=== PATIENT | female | born 1975 | race Caucasian/White ===

== ENCOUNTER 2020-01-26 09:53 | Outpatient (CLI) | payer OTHER, SELFPAY ==
[2020-01-26 10:32] LABS: Basophils Percent Auto 0.5 % (0.2-1.2); Eosinophils Absolute Auto 0.1 K/mm3 (0-0.3); Eosinophils Percent Auto 1.3 % (0-4.4); Hematocrit 37.3 % (37.0-47.0); Hemoglobin 12.1 g/dL (12.0-15.0); Immature Granulocyte Absolute 0.01 K/mm3 (0.00-0.031); Immature Granulocyte Percent A 0.2 % (0-0.5); Lymphocytes Absolute Auto 2.28 K/mm3 (0.9-3.2); Lymphocytes Percent Auto 41.5 % (18.3-44.2); Mean Corpuscular HGB Conc 32.4 g/dl (32-36); Mean Corpuscular Hemoglobin 28.3 pg (26-34); Mean Corpuscular Volume 87.4 fl (80-100); Monocytes Absolute Auto 0.3 K/mm3 (0.1-0.6); Monocytes Percent Auto 5.1 % (2.6-8.5); Neutrophils Absolute Auto 2.8 K/mm3 (1.3-6.7); Neutrophils Percent Auto 51.4 % (45.5-73.1); Platelet Count Result 268 k/mm3 (150-375); Red Blood Count 4.27 M/mm3 (4.2-5.4); White Blood Count 5.5 K/mm3 (4.5-10.0)
[2020-01-26 10:38] LABS: Add Urine Microscopic? YES; Appearance Urine Clear (Clear); Bilirubin Urine Negative (Negative); Blood Urine Negative (Negative); Color Urine Yellow (Yellow); Glucose Urine UA Negative (Negative); Ketones Urine Negative (Negative); Leukocyte Esterase Ur Trace LEU/UL (Negative); Mucus Urine Rare /lpf; Nitrate Urine Negative (Negative); Protein Urine Negative (Negative); Specific Grav Ur 1.016 (1.001-1.035); Squamous Epithelial Cell Urine Many /hpf (Few); Urobilinogen Urine Negative mg/dL (<2.0); WBC Urine 0-3 /hpf
[2020-01-26 10:45] LABS: Alanine Aminotransferase 15 U/L (4-35); Albumin Level 4.3 g/dL (3.5-5.1); Alkaline Phosphatase 54 U/L (38-126); Aspartate Amino Transferase 24 U/L (14-36); Bilirubin,Total 0.5 mg/dL (0.2-1.3); Blood Urea Nitrogen 16 mg/dL (7-17); Calcium 8.5 mg/dL (8.4-10.2); Carbon Dioxide 29 mmol/L (22-30); Chloride 101 mmol/L (98-107); Cholesterol 154 mg/dL (0-200); Estimated Glomerular Filt Rate > 60; Glucose 94 mg/dL (65-105); HDL Direct 43 mg/dL; Sodium 137 mmol/L (137-145); Triglycerides 72 mg/dL (<150)
[2020-01-26 10:56] LABS: LDL Cholesterol Direct 95 mg/dL
[2020-01-26 11:24] LABS: Free T4 Free Thyroxine 1.04 ng/mL (0.78-2.19); Vitamin D 25 Hydroxy 40.4 ng/mL
[2020-01-26 11:50] LABS: Folic Acid > 20.0 ng/mL (2.76->20)
[2020-01-29 00:41] LABS: Thyroid Peroxidase Antibodies 6 IU/mL (<9)
[2020-01-29 02:45] LABS: Calcitonin <2 pg/mL (<=5)
[2020-01-29 16:37] LABS: Iron 147 ug/dL (37-170)
[2020-01-29 16:46] LABS: Percent Iron Saturation 36 % (20-50)
[2020-01-29 20:46] LABS: Triiodothyronine T3 Free 2.4 pg/mL (2.3-4.2)
== END 2020-01-26 09:54 | disposition home or self-care (01) ==
PROVIDERS: Referring Provider Internal Medicine Endocrinology, Diabetes & Metabolism; Visit Provider Emergency Medicine
DX: D64.9 Anemia, unspecified (principal); E03.9 Hypothyroidism, unspecified; N28.9 Disorder of kidney and ureter, unspecified; R06.02 Shortness of breath; R07.9 Chest pain, unspecified; R53.83 Other fatigue; Z13.220 Encounter for screening for lipoid disorders; E55.9 Vitamin D deficiency, unspecified; E04.1 Nontoxic single thyroid nodule
CPT/HCPCS: 36415; 80053; 80061; 81001; 82306; 82308; 82607; 82746; 83540; 83550; 84439; 84443; 84481; 85025; 85027; 86376

== ENCOUNTER 2020-05-07 16:14 | Outpatient (CLI) | payer OTHER, SELFPAY ==
--- NOTE | ~2020-05-07 | US_ITS ---
EXAMINATION: US thyroid EXAM DATE: 05/07/2020 17:19 INDICATION: Thyroid nodule. TECHNIQUE: Multiple grayscale and Doppler images of the thyroid were obtained (by a technologist who performed the scan) and subsequently reviewed. Individual nodules and recommendations may be reporte d in accordance with TI-RADS system as designated by the 2017 ACR White Paper TI-RADS committee. Comp arison is made to prior examination from 08/11/2019, 08/02/2017. FINDINGS: The right thyroid lobe measures 6.1 x 1.2 x 2.2 cm, the left measuring 4.1 x 1.1 x 1.1 cm. Mildly het erogeneous thyroid echogenicity with large right thyroid lobe measuring 3.0 x 2.7 x 1.4 centimeters, predominantly solid (2 points), isoechoic (1 point), wider than tall, smooth margin, without echogeni c foci, category TR3 for this nodule. Dimensions provided in 2017 at 2.4 x 1.4 cm, and 2019 at 2.9 x 2.7 x 1.7 cm. This nodule was also previously biopsied in August, correlate with histology. IMPRESSION: 1. Goiter. 2. Right thyroid lobe nodule, unchanged compared to 2019. Reviewed, dictated and finalized at location B.
--- NOTE | ~2020-05-07 | US_ITS ---
EXAMINATION: US renal BI DATE: 05/07/2020 17:20 INDICATION: Hematuria TECHNIQUE: Multiple grayscale and Doppler ultrasound images of the kidneys were obtained. COMPARISON: None. FINDINGS: The right kidney measures 11.5 x 5.1 x 3.7 cm. The left kidney measures 12.8 x 4.6 x 3.8 cm . The kidneys demonstrate normal parenchymal echogenicity. There is no hydronephrosis. The bladder is normal. IMPRESSION: 1. Normal kidneys without hydronephrosis. Reviewed, dictated and finalized at location A.
== END 2020-05-07 16:15 | disposition home or self-care (01) ==
PROVIDERS: Visit Provider Internal Medicine Endocrinology, Diabetes & Metabolism
DX: R31.9 Hematuria, unspecified (principal); E04.9 Nontoxic goiter, unspecified
CPT/HCPCS: 76536; 76775

== ENCOUNTER 2021-02-25 08:16 | Outpatient (CLI) | payer OTHER, SELFPAY ==
--- NOTE | ~2021-02-25 | MM_ITS ---
EXAMINATION: MM screening [facility] BI w kosta HISTORY: Screening mammogram TECHNIQUE: Craniocaudal and mediolateral oblique 3-D tomosynthesis images were obtained and synthetic 2-D images were generated. CAD analysis was submitted and interpreted. COMPARISON: 08/11/2019, 08/02/2017 BREAST PARENCHYMAL COMPOSITION: The breasts are heterogeneously dense, which may obscure small masses . FINDINGS: There is no evidence of suspicious mass, calcification, or architectural distortion to sugg est malignancy in either breast. There has been no suspicious interval change. IMPRESSION: 1. No mammographic evidence of malignancy. 2. Recommend routine screening mammography in one year. BI-RADS Category 1: Negative Reviewed, dictated and finalized at location A.
[2021-02-25 09:51] LABS: Alanine Aminotransferase 13 U/L (4-35); Albumin Level 4.2 g/dL (3.5-5.1); Alkaline Phosphatase 56 U/L (38-126); Anion Gap 3 mmol/L (8-16); Aspartate Amino Transferase 24 U/L (14-36); Bilirubin,Total 0.4 mg/dL (0.2-1.3); Blood Urea Nitrogen 16 mg/dL (7-17); Calcium 8.8 mg/dL (8.4-10.2); Carbon Dioxide 32 mmol/L (22-30); Chloride 104 mmol/L (98-107); Estimated Glomerular Filt Rate > 60; Glucose 104 mg/dL (65-105); Sodium 139 mmol/L (137-145)
[2021-02-25 11:06] LABS: Folic Acid 16.1 ng/mL (2.76->20)
[2021-03-01 06:11] LABS: Thyroid Peroxidase Antibodies 6 IU/mL (<9)
[2021-03-01 07:59] LABS: Triiodothyronine T3 Free 2.8 pg/mL (2.3-4.2)
== END 2021-02-25 08:17 | disposition home or self-care (01) ==
PROVIDERS: Referring Provider Internal Medicine Endocrinology, Diabetes & Metabolism; Visit Provider Emergency Medicine
DX: Z12.31 Encounter for screening mammogram for malignant neoplasm of breast (principal); E03.9 Hypothyroidism, unspecified
CPT/HCPCS: 36415; 77063; 77067; 80053; 82607; 82746; 84439; 84443; 84481; 86376

== ENCOUNTER 2021-05-13 10:15 | Emergency (ER) | payer OTHER, SELFPAY ==
[2021-05-13 10:35] VITALS: BP 118/89; PULSE 105; RESP 16; TEMP 36.4; O2SAT 100
[2021-05-13 10:38] VITALS: BP 118/89; PULSE 105; RESP 16; TEMP 36.4; O2SAT 100
--- NOTE | 2021-05-13 11:10 | ED.BACK ---
HPI - Back Pain/Injury General Chief Complaint: Back Pain/Injury Stated Complaint: Lt leg pain Time Seen by Provider: 05/13/21 11:03 Source: patient and RN notes reviewed Mode of arrival: ambulatory Limitations: no limitations History of Present Illness HPI Narrative: Patient presents today complaining of pain to her left buttock and left upper leg since yesterday. Pain started as she was getting out of bed. History of sciatica and piriformis syndrome. Denies numbness or tingling in the genitals or legs. Denies any loss of bowel or bladder control. She currently rates her pain 5/10, which increases with standing, walking, movement. She has been taking ibuprofen without relief. MD elicited complaint: back pain Related Data Home Medications Medication Instructions Recorded Confirmed alprazolam 0.5 mg PO TID PRN 11/23/19 05/13/21 amitriptyline 75 mg PO HS 11/23/19 05/13/21 levothyroxine 88 mcg PO DAILY 11/23/19 05/13/21 Allergies Allergy/AdvReac Type Severity Reaction Status Date / Time [place] Grass Allergy Unknown Unknown Uncoded 11/23/19 14:45 Cockroach Allergy Unknown Unknown Uncoded 11/23/19 14:45 Dust Allergy Unknown Unknown Uncoded 11/23/19 14:45 Review of Systems Review of Systems: Narrative: CONSTITUTIONAL: Denies body aches, fever, chills, or sweats. EYES: Denies visual changes, redness, or discharge. ENT: Denies rhinorrhea, congestion, sore throat, or otalgia. CARDIOVASCULAR: Denies chest pain, palpitations, or edema. RESPIRATORY: Denies cough or dyspnea. GASTROINTESTINAL: Denies abdominal pain, nausea, vomiting, or diarrhea. GENITOURINARY: Denies dysuria or hematuria. SKIN: Denies rash, itching, or wounds. MUSCULOSKELETAL: Denies joint pain, or myalgia. + Pain left buttock NEUROLOGIC: Denies headache, numbness, tingling, or weakness. PSYCH: Denies depression or anxiety. [facility] Past Medical History Medical History (Updated 05/13/21 @ 11:15 by Liana Patel, [facility], ) Anxiety Asthma Diabetes Hiatal hernia HTN (hypertension) Hypothyroid IBS (irritable bowel syndrome) Surgical History Surgical History History of bladder surgery History of hysterectomy History of tonsillectomy Social History Social History Smoking status: Never smoker Alcohol intake: never Gender identity (if verbalized by the patient): Female Comments At time of signature, I have reviewed and agree with nursing past medical, surgical, social and family history unless otherwise noted. Please see nursing chart for further information. There is no relevant family history pertinent to the presenting complaint Exam Narrative: Exam Narrative: GENERAL: Well-appearing, well-nourished, and in no acute distress. HEAD: Normocephalic, atraumatic. EYES: EOMI. No redness or drainage. Conjunctivae normal. ENT: Mucous membranes pink and moist. NECK: Normal AROM. CHEST: No respiratory distress. MUSCULOSKELETAL: No bony tenderness of the thoracic or lumbar spine. Left lower lumbar paraspinal muscle tenderness extending to the left SI joint. Distal sensation intact. Saddle sensation intact. Capillary refill normal. Posterior tibial pulses normal. Foot push and pulls equal and strong. EXTREMITIES: Normal range of motion. No edema. SKIN: Warm, dry, no rash. Capillary refill normal. Normal skin turgor. NEURO: No focal deficits. Alert and oriented x3. Gait steady. PSYCH: Normal affect. No signs of depression or anxiety. Course Vital Signs Vital signs: Vital Signs Temperature 97.6 F 05/13/21 10:35 Pulse Rate 105 H 05/13/21 10:35 Respiratory Rate 16 05/13/21 10:35 Blood Pressure 118/89 05/13/21 10:35 Pulse Oximetry 100 05/13/21 10:35 Temperature 97.6 F 05/13/21 10:38 Pulse Rate 105 H 05/13/21 10:38 Respiratory Rate 16 05/13/21 10:38 Blood Pressure 118/89 05/13/21
== END 2021-05-13 11:21 | disposition home or self-care (01) ==
PROVIDERS: Emergency Provider Nurse Practitioner; PCP Emergency Medicine
DX: M54.32 Sciatica, left side (principal); J45.909 Unspecified asthma, uncomplicated; E11.9 Type 2 diabetes mellitus without complications; I10 Essential (primary) hypertension; E03.9 Hypothyroidism, unspecified; F41.9 Anxiety disorder, unspecified
CPT/HCPCS: 99213; G0463

== ENCOUNTER 2021-06-06 07:59 | Outpatient (CLI) | payer OTHER, SELFPAY ==
--- NOTE | ~2021-06-06 | XR_ITS ---
SMALL BOWEL SERIES ONLY INDICATION: Obstipation. Small bowel obstruction. TECHNIQUE: Serial plain films and fluoroscopic spot films are performed following oral demonstration of thin barium. COMPARISON: None FINDINGS: Barium was followed sequentially through the small bowel. The mucosal pattern is unremarka ble. No evidence for stricture, polyp, diverticula or obstruction of flow of contrast. Transit time is normal. IMPRESSION: 1: Unremarkable small bowel series. Reviewed, dictated and finalized at location A.
== END 2021-06-06 08:00 | disposition home or self-care (01) ==
PROVIDERS: PCP Emergency Medicine; Visit Provider Internal Medicine Gastroenterology
DX: R10.84 Generalized abdominal pain (principal); K59.00 Constipation, unspecified
CPT/HCPCS: 74250

== ENCOUNTER 2021-07-07 08:24 | Outpatient (CLI) | payer OTHER, SELFPAY ==
--- NOTE | ~2021-07-07 | XR_ITS ---
EXAMINATION: XR_ENEMABAC_CR DATE: 07/07/2021 10:02 INDICATION: Incomplete colonoscopy TECHNIQUE: A leadite man radiograph was obtained. A catheter was inserted into the patient's rectum. Contra st was infused by gravity. Gas was infused by hand pump. Fluoroscopic spot images and conventional ra diographs were obtained. Fluoroscopy exposure time was 5.7 minutes. The DAP for this procedure was 20 5.53 Gycm2. 32 total images were obtained. COMPARISON: None. FINDINGS: There is no stricture of the colon. Diverticula of the sigmoid colon are noted. No filling defects are evident. IMPRESSION: 1. No colonic stricture or mass identified. Reviewed, dictated and finalized at location A.
== END 2021-07-07 08:25 | disposition home or self-care (01) ==
LOC: ANHIMG 08:28
PROVIDERS: PCP Emergency Medicine; Visit Provider Internal Medicine Gastroenterology
DX: Z53.9 Procedure and treatment not carried out, unspecified reason (principal)
CPT/HCPCS: 74280

== ENCOUNTER 2022-03-08 11:38 | Emergency (ER) | payer OTHER, SELFPAY ==
--- NOTE | 2022-03-08 11:41 | ED.GENADULT ---
HPI - General Adult General Chief complaint: Skin/Abscess/Foreign Body Stated complaint: rash,facial swelling Time Seen by Provider: 03/08/22 11:41 Source: patient Mode of arrival: ambulatory Limitations: no limitations History of Present Illness HPI narrative: 46-year-old female patient presents to the [facility] with complaints of a rash to the face with itching and facial swelling. Patient states that this past started having a rash and itching to the knees that quickly spread throughout the body. Patient states she was seen at an urgent care in [facility] on Wednesday and was given a steroid shot for the rash as well as prescribed a prednisone Dosepak. Patient states that she has been taking 60 mg a day of the prednisone along with Pepcid twice a day, Benadryl and Xyzal once a day. Patient states she woke up this morning and has swelling around the eyes, lips. Denies any chest pain, shortness of breath or feeling like her throat is closing up. Related Data Home Medications Medication Instructions Recorded Confirmed alprazolam 0.5 mg PO TID PRN 11/23/19 03/08/22 amitriptyline 75 mg PO HS 11/23/19 03/08/22 levothyroxine 88 mcg PO DAILY 11/23/19 03/08/22 Allergies Allergy/AdvReac Type Severity Reaction Status Date / Time [place] Grass Allergy Unknown Unknown Uncoded 03/08/22 11:53 Cockroach Allergy Unknown Unknown Uncoded 03/08/22 11:53 Dust Allergy Unknown Unknown Uncoded 03/08/22 11:53 Review of Systems Review of Systems: CONSTITUTIONAL: Denies fever, chills, or sweats. EYES: Denies visual changes, redness, or discharge. ENT: Denies rhinorrhea, congestion, sore throat, or otalgia. CARDIOVASCULAR: Denies chest pain, palpitations, or edema. RESPIRATORY: Denies cough or dyspnea. GASTROINTESTINAL: Denies abdominal pain, nausea, vomiting, or diarrhea. GENITOURINARY: Denies dysuria or hematuria. SKIN: Positive rash and itching. MUSCULOSKELETAL: Denies back pain, joint pain, or myalgia. NEUROLOGIC: Denies headache, numbness, or weakness. PSYCHIATRIC: Denies anxiety or depression. [facility] Past Medical History Medical History (Updated 03/08/22 @ 12:04 by GARRY Celestin) Anxiety Asthma Diabetes Hiatal hernia HTN (hypertension) Hypothyroid IBS (irritable bowel syndrome) Surgical History Surgical History History of bladder surgery History of hysterectomy History of tonsillectomy Social History Social History Smoking status: Never smoker Alcohol intake: never Gender identity (if verbalized by the patient): Female Comments At the time of my signature I agree with nursing past medical history, surgical, social, and family history. There is no relevant family history pertinent to the presenting complaint. Exam Narrative: GENERAL: Well-appearing, well-nourished, and in no acute distress. HEAD: Normocephalic, atraumatic. EYES: PERRLA and EOMI. slight swelling noted under the right eyelid. Slight lip swelling noted. ENT: Nares clear, no rhinorrhea or epistaxis. Mucous membranes moist. Posterior pharynx with no erythema, tonsil enlargement or swelling noted. NECK: Supple. No lymphadenopathy CHEST: Clear to auscultation. No respiratory distress. Patient able talk in clear complete sentences. HEART: Regular rate and rhythm. No murmur heard. Normal peripheral pulses. ABDOMEN: Soft, nontender, nondistended, normal active bowel sounds. EXTREMITIES: Normal range of motion. No edema. SKIN: Warm, dry, no rash. NEURO: No focal deficits. Alert and oriented x3. Course Course Level of Care: Express Care Visit Vital Signs Vital signs: Vital Signs Temperature 36.8 C 03/08/22 11:47 Pulse Rate 108 H 03/08/22 11:47 Respiratory Rate 18 03/08/22 11:47 Blood Pressure 143/82 H 03/08/22 11:47 Pulse Oximetry 98 03/08/22 11:47 Temperature 36.8 C 03/08/22 11:47 Pulse Rate 108 H
[2022-03-08 11:47] VITALS: BP 143/82; PULSE 108; RESP 18; TEMP 36.8; O2SAT 98
== END 2022-03-08 12:10 | disposition home or self-care (01) ==
PROVIDERS: Emergency Provider Nurse Practitioner Family; PCP Emergency Medicine
DX: L50.9 Urticaria, unspecified (principal); T78.40XA Allergy, unspecified, initial encounter; R21 Rash and other nonspecific skin eruption; F41.9 Anxiety disorder, unspecified; E11.9 Type 2 diabetes mellitus without complications; I10 Essential (primary) hypertension; E03.9 Hypothyroidism, unspecified
CPT/HCPCS: 99213; G0463

== ENCOUNTER 2022-05-06 07:39 | Outpatient (CLI) | payer OTHER, SELFPAY ==
--- NOTE | ~2022-05-06 | US_ITS ---
EXAMINATION: US thyroid DATE: 05/06/2022 08:04 INDICATION: Nontoxic goiter. Thyroid nodule. Prior biopsy in 2019 benign follicular nodule with featu res of colloid cyst. Prior biopsy in 2017 consistent with benign follicular nodule. TECHNIQUE: Multiple ultrasound images of the thyroid were obtained. COMPARISON: 05/07/2020 and 08/11/2019. FINDINGS: The right thyroid lobe measures 3.1 x 1.2 x 1.1 cm. The left thyroid lobe measures 4.2 x 0.9 x 1.0 c m. There is normal echotexture and echogenicity throughout the thyroid gland. 3.3 x 2.7 x 2.1 cm mix ed cystic and solid, isoechoic, wider than tall, smoothly marginated right isthmus nodule, without ec hogenic foci (TR 2), previously measured 3.0 x 2.7 x 1.4. Spongiform areas comprise less than 50% of the nodule. Possible colloid appearing echogenicities in the inferior portion of the nodule. Normal v ascular flow is present. IMPRESSION: 1.. Twice biopsied 3.3 cm right isthmus nodule, with increased interval cystic change that downgrades categorization to TR2. No FNA or follow-up recommended at this time. Reviewed, dictated and finalized at location K. IMPRESSION: 1.. Twice biopsied 3.3 cm right isthmus nodule, with increased interval cystic change that downgrades categorization to TR2. No FNA or follow-up recommended a t this time.
== END 2022-05-06 07:40 | disposition home or self-care (01) ==
PROVIDERS: PCP Emergency Medicine; Visit Provider Nurse Practitioner
DX: E04.9 Nontoxic goiter, unspecified (principal)
CPT/HCPCS: 76536

== ENCOUNTER 2022-11-04 12:49 | Outpatient (CLI) | payer OTHER, SELFPAY ==
--- NOTE | ~2022-11-04 | CT_ITS ---
EXAMINATION: CT abdomen pelvis wo/w con DATE: 11/04/2022 13:38 INDICATION: Abdominal pain and hematuria TECHNIQUE: Computed tomography (CT) of the abdomen and pelvis was performed without intravenous contr ast. CT of the abdomen and pelvis was then performed with a total of 130 mL Omnipaque 350 intravenous contrast using a double-bolus technique for simultaneous opacification of the renal parenchyma and r enal collecting system. The dose-length product (DLP) was 1947.00 mGy-cm. Automated exposure control and iterative reconstruction technique were employed. COMPARISON: None FINDINGS: Surgical changes of the stomach are likely related to weight loss surgery. The visualized l evan bases are clear. The heart size is normal. There is a trace pericardial effusion. The liver, sple en, pancreas, gallbladder, and adrenal glands are normal. There is a 1 mm nonobstructing stone of the left kidney. The right kidney is unremarkable. There is a 6 mm focal area of nodular wall thickening of the anterior bladder wall. No hydronephrosis or hydroureter. Much of the left ureter does not opa cify with contrast however, no obstructing lesion is seen. No pathologically enlarged abdominal or pe lvic lymph nodes are identified. There is no free intraperitoneal gas or evidence of bowel obstructio n. A moderate volume of colonic stool is present. Formed stool in the nondistended terminal ileum is consistent with slow transit. The appendix is normal. IMPRESSION: 1. Focal area of wall thickening in the anterior bladder wall. Small urothelial lesion is a considera tion. Recommend urologic evaluation. 2. Punctate nonobstructing left nephrolithiasis. Reviewed, dictated and finalized at location B. [employer] IMPRESSION: 1. Focal area of wall thickening in the anterior bladder wall. Small urothelial lesion is a consideration. Recommend urologic evaluation. 2. Punctate nonobstructing left nephrolithiasis.
== END 2022-11-04 12:50 | disposition home or self-care (01) ==
PROVIDERS: PCP Emergency Medicine; Visit Provider Emergency Medicine
DX: M54.50 Low back pain, unspecified (principal); R31.9 Hematuria, unspecified; R10.84 Generalized abdominal pain; N20.0 Calculus of kidney
CPT/HCPCS: 74178; Q9967

== ENCOUNTER 2023-03-12 03:41 | Day surgery (SDC) | payer OTHER, SELFPAY ==
[2023-03-04 11:57] VITALS: BMI 31.6
--- NOTE | 2023-03-04 12:03 | PC.NURSE ---
Report to the Outpatient Waiting Room, entrance under the green pavilion located off [facility], at time 0730 on date 03/12/23. Planned Procedure Time: 0930. Time changes happen often and if your time is changed the preop area will call you the afternoon before. - You and your visitor will be asked to self-screen and do not enter if you have any COVID symptoms. - A mask is optional within the hospital at this time. Patients may have clear liquids (water, carbonated beverages, clear teas, apple juice) until 3 hours prior to surgery with a maximum of 20 ounces. - No food from midnight until time of surgery Take the following medications with a SIP of water the morning of surgery: ALPRAZOLAM IF NEEDED, SYNTHROID DO NOT STOP ANY OF YOUR OTHER PRESCRIPTION MEDICATIONS PRIOR TO SURGERY EXCEPT THE FOLLOWING Medications to discontinue per physician: VITAMINS/SUPPLEMENTS Date to take last dose: 03/08/23 Please no make-up, nail amharic, hairspray, perfume, deodorant, or body powder the day of surgery. No jewelry (including any body piercings) or valuables the day of surgery, leave them at home. Please take a shower or bath the night before, or the morning of, surgery with an antibacterial soap. Wear comfortable, loose fitting clothing. - Jewelry must be removed prior to entering the operating room. Rings and piercings that are not removed may be cut off. - The hospital will not accept responsibility for valuables. - Please leave all valuables, including medications, at home the day of surgery. If you are going home after surgery, a licensed truck driver heavy must drive you home. - NO public transportation without another adult if you receive anesthesia. - We recommend that an adult stay with you for 24 hours following discharge. - We also recommend that you do not drive, make important decision, drink alcoholic beverages, or take any drugs that were not prescribed by your health care provider for at least 24 hours after your discharge time. Follow any additional instructions given to you from your surgeon. If you or anyone in your household have experienced Covid symptoms in the past week, please notify your surgeon or the nurse liaison at the phone number below for possible testing. Telephone instructions given to PT - JUNIOR WHITTINGTON and asked if any additional questions and then verbalized understanding. Patient advised to call surgeon office or pre surgery nurse liaison [phone] if any additional questions.
--- NOTE | 2023-03-09 12:31 | P.HP_ITS ---
H&P: HPI History of Present Illness Date/Time: 03/09/23 12:31 Chief Complaint: Lesions vagina Narrative: Is a 47-year-old female status post hysterectomy cystocele and rectus seal with overgrowth of the lesions in the vagina. She has had bleeding and chronic discharge. Attempted to treat these in the office but then offered her cauterization with laser as it did not completely improved. Risks and benefits reviewed [facility] Past Medical History Medical History (Updated 03/09/23 @ 12:34 by Baron Dominguez MD) Anxiety Asthma Diabetes Hiatal hernia HTN (hypertension) Hypothyroid IBS (irritable bowel syndrome) Surgical History Surgical History History of bladder surgery History of hysterectomy History of tonsillectomy Social History Social History Smoking status: Never smoker Alcohol intake: current Alcohol use details: 2/MONTH Substance use: never Substance use type: does not use Living arrangements: with family Gender identity (if verbalized by the patient): Female Spiritual care concerns: No Meds Home Medications and Allergies Home Medications Medication Instructions Recorded Confirmed Type alprazolam 0.5 mg tablet 0.5 mg PO TID PRN Anxiety 11/23/19 03/04/23 History amitriptyline 75 mg tablet 75 mg PO HS 11/23/19 03/04/23 History epinephrine 0.3 mg/0.3 mL 0.3 ml subcut ONCE #2 ea 03/08/22 03/04/23 Rx injection, auto-injector cholecalciferol (vitamin D3) 125 125 mcg PO DAILY 03/04/23 03/04/23 History mcg (5,000 unit) tablet (Vitamin D3) levothyroxine 112 mcg tablet 112 mcg PO DAILY 03/04/23 03/04/23 History (Synthroid) melatonin 10 mg tablet 10 mg PO HS PRN Sleep 03/04/23 03/04/23 History multivitamin 1 tablet PO DAILY 03/04/23 03/04/23 History omega 5-kvu-ffp-fish oil 1,000 mg 1 cap PO DAILY 03/04/23 03/04/23 History (120 mg-180 mg) capsule (Fish Oil) Allergies Allergy/AdvReac Type Severity Reaction Status Date / Time [place] Grass Allergy Unknown Unknown Uncoded 03/04/23 11:54 Cockroach Allergy Unknown Unknown Uncoded 03/04/23 11:54 Dust Allergy Unknown Unknown Uncoded 03/04/23 11:54 Exam Const: General: cooperative, healthy appearing and comfortable Nutritional Appearance: average body habitus Orientation/consciousness: oriented to person, oriented to place and oriented to time HENMT: Head: normal to inspection Chest: Chest palpation & inspection: normal inspection of the chest Resp: Effort & Inspection: normal respiratory effort Cardio: Rate: regular rate Rhythm: regular rhythm Heart sounds: S1 normal heart sound present and S2 normal heart sound present GI: Inspection: normal to inspection Auscultation: normal bowel sounds : External Female Exam: normal external appearance Speculum Exam - Vag gino: normal appearance of the vagina Speculum Exam - Cervix: Cervix absent (Lesion seen on vaginal cuff) Bimanual Exam- Adnexa, other: normal adnexae Assessment and Plan Assessment and plan (1) Vaginal lesion: Code(s): N89.8 - Other specified noninflammatory disorders of vagina Status: Acute Plan CO2 laser of vaginal lesions
--- NOTE | 2023-03-11 13:46 | P.PNAN_ITS ---
Anes - Initial Pre Proc Eval Procedure: Operation Date: 03/12/23 09:30 Proposed Procedures p CO2 Laser of Vaginal Lesions - Baron Dominguez MD Date/Time: 03/11/23 13:46 Surgeon: Baron Dominguez MD Pre Op Diagnosis: Vaginal Lesions Patient Data Age: 47 Gender: F Height: 1.65 m Weight: 86.2 kg Allergies Allergy/AdvReac Type Severity Reaction Status Date / Time [place] Grass Allergy Unknown Unknown Uncoded 03/12/23 07:11 Cockroach Allergy Unknown Unknown Uncoded 03/12/23 07:11 Dust Allergy Unknown Unknown Uncoded 03/12/23 07:11 Home Medications Medication Instructions Recorded Confirmed Type alprazolam 0.5 mg tablet 0.5 mg PO TID PRN Anxiety 11/23/19 03/12/23 History amitriptyline 75 mg tablet 75 mg PO HS 11/23/19 03/12/23 History epinephrine 0.3 mg/0.3 mL 0.3 ml subcut ONCE #2 ea 03/08/22 03/12/23 Rx injection, auto-injector cholecalciferol (vitamin D3) 125 125 mcg PO DAILY 03/04/23 03/12/23 History mcg (5,000 unit) tablet (Vitamin D3) levothyroxine 112 mcg tablet 112 mcg PO DAILY 03/04/23 03/12/23 History (Synthroid) melatonin 10 mg tablet 10 mg PO HS PRN Sleep 03/04/23 03/12/23 History multivitamin 1 tablet PO DAILY 03/04/23 03/12/23 History omega 7-fpk-nlz-fish oil 1,000 mg 1 cap PO DAILY 03/04/23 03/12/23 History (120 mg-180 mg) capsule (Fish Oil) hydrocodone 5 mg-acetaminophen 325 1 tablet PO Q4H PRN pain #20 tabs 03/12/23 Rx mg tablet Patient hx anesthesia problems: none Family hx anesthesia problems: none Results Review: All pre-operative results and documents have been reviewed as part of the pre- operative evaluation. [facility] Past Medical History Medical History (Updated 03/11/23 @ 13:52 by Jose Pacheco MD) Anxiety Asthma Diabetes Hiatal hernia HTN (hypertension) Hypothyroid IBS (irritable bowel syndrome) Obesity Surgical History Surgical History History of bladder surgery History of hysterectomy History of tonsillectomy Social History Social History Smoking status: Never smoker Alcohol intake: current Alcohol use details: 2/MONTH Substance use: never Substance use type: does not use Living arrangements: with family Gender identity (if verbalized by the patient): Female Spiritual care concerns: No Anes - Eval Final PreProcedure Day of Procedure 03/11/23 13:46 Patient weight: obese Heart: regular rate and rhythm Lungs: clear to auscultation and normal air movement Airway: Mallampati scale class II Neurological: alert and oriented Last oral intake: >/= 8 hours ASA classification: III Emergent: no Anesthetic plan: proceed Anesthesia type and monitoring: general GIVS and LMA Results Review: All pre-operative results and documents have been reviewed as part of the pre- operative evaluation. Informed Consent: The patient's anesthetic plan and its attendant risks and benefits were discussed with the patient/family/POA. Questions were solicited and answers provided to the satisfaction of the patient/family/POA.
--- NOTE | 2023-03-12 06:02 | WPDHPUPDATE1 ---
History and Physical Update Update Date/Time: 03/12/23 06:02 History and Physical has been reviewed, including an updated exam of the patient. There are NO changes in the patient's condition. Risks, benefits, and alternatives have been discussed and questions answered. Patient agrees to proceed with procedure.
[2023-03-12 06:49] VITALS: BP 122/82; PULSE 84; RESP 18; TEMP 36.4; O2SAT 100
[2023-03-12] MEDS: LACTATED RINGERS 1,000 ML 30 ML IV CONT (07:18)
--- NOTE | 2023-03-12 09:22 | W.PM.PROC2 ---
Procedure Note - Detailed Date of Procedure 03/12/23 Pre-op Diagnosis Vaginal Lesions Post-op Diagnosis Same Procedure Performed CO2 laser of vaginal lesions Surgeon Baron Dominguez MD Anesthesia General Indications this is a 47-year-old female status post hysterectomy with overgrowth the epithelial in the vagina Findings status post hysterectomy with vaginal epithelialization Description of Procedure patient is prepped draped normal sterile fashion placed in the dorsal lithotomy position. Under excellent LMA anesthesia the coated speculum was placed in the vagina the areas of overgrowth were visualized and using the laser at 10 and these were used to destroy and completion. Blood loss was estimated 1cc. All sponge, needle, instrument counts were correct. There were no immediate complications Estimated Blood Loss 1 Drains No Packing No Pathology None sent Complications No immediate complications Condition Stable Disposition PACU
[2023-03-12 09:24] VITALS: BP 126/87; PULSE 75; RESP 10; TEMP 36.4; O2SAT 100
[2023-03-12 09:35] VITALS: BP 128/90; PULSE 70; RESP 16; O2SAT 100
[2023-03-12 09:50] VITALS: BP 130/86; PULSE 67; RESP 13; O2SAT 100
[2023-03-12 09:54] VITALS: BP 134/81; PULSE 78; RESP 20
[2023-03-12] MEDS: oxyCODONE HCL (*CRX) 5 MG TAB IR PO (10:04)
[2023-03-12 10:20] VITALS: BP 120/70; PULSE 70; RESP 20
== END 2023-03-12 10:25 | disposition home or self-care (01) ==
PROVIDERS: PCP Emergency Medicine; Visit Provider Obstetrics & Gynecology
PROC: (CPT 56501; principal; 2023-03-12 09:30)
DX: N89.8 Other specified noninflammatory disorders of vagina (principal); I10 Essential (primary) hypertension; E11.9 Type 2 diabetes mellitus without complications; E03.9 Hypothyroidism, unspecified; F41.9 Anxiety disorder, unspecified; E66.9 Obesity, unspecified; Z68.32 Body mass index [BMI] 32.0-32.9, adult
CPT/HCPCS: 56501; A9270; J1100; J2250; J2405; J2704; J7120

== ENCOUNTER 2023-04-01 07:59 | Outpatient (CLI) | payer OTHER, SELFPAY ==
--- NOTE | ~2023-04-01 | US_ITS ---
US thyroid INDICATION: Mona's thyroiditis TECHNIQUE: Real-time sonographic images of the thyroid gland were obtained. COMPARISON: Ultrasound dated 05/06/2022 FINDINGS: The right thyroid lobe measures 3.5 x 1.4 x 1.1 cm. The left thyroid lobe measures 3.7 x 1 .2 x 1.2 cm. There is normal echotexture and echogenicity throughout the thyroid gland. There is a co mplex partially cystic mass of the right lobe measuring 3.4 x 2.9 x 2 cm with increasing cystic compo nent. This is been biopsied proven benign no discrete masses in the left lobe. There is normal vascul arity. Twice previously. Normal vascular flow is present. IMPRESSION: 1. Slightly increased size of mixed solid and cystic, isoechoic, wider than tall, smoothly marginate d right thyroid nodule at the isthmus, TR 2. Previously biopsy-proven benign twice. No FNA or follow- up recommended at this time. Reviewed, dictated and finalized at location D. IMPRESSION: 1. Slightly increased size of mixed solid and cystic, isoechoic, wider than ta ll, smoothly marginated right thyroid nodule at the isthmus, TR 2. Previously b iopsy-proven benign twice. No FNA or follow-up recommended at this time.
== END 2023-04-01 08:00 | disposition home or self-care (01) ==
LOC: ANHIMG 08:01
PROVIDERS: PCP Emergency Medicine; Visit Provider Emergency Medicine
DX: E06.3 Autoimmune thyroiditis (principal)
CPT/HCPCS: 76536

== ENCOUNTER 2023-04-28 08:06 | Outpatient (CLI) | payer OTHER, SELFPAY ==
--- NOTE | ~2023-04-28 | CT_ITS ---
EXAMINATION: CT abdomen pelvis w con DATE: 04/28/2023 08:38 INDICATION: Abdomen pain. TECHNIQUE: Computed tomography (CT) of the abdomen and pelvis was performed with 100 cc Omnipaque 350 intravenous contrast. The dose-length product was 756.84 mGy-cm. Automated exposure control and iter ative reconstruction technique were employed. COMPARISON: CT dated 11/04/2022. FINDINGS: Lung bases are unremarkable. Heart size normal. No significant pleural or pericardial effus ion. There are changes of gastric bypass. There is a small bowel anastomosis in the right upper abdom en. The liver, spleen, pancreas, adrenal glands and kidneys are unremarkable. Small amount of free fluid in the pelvis. Nonobstructive bowel pattern. No significant vascular abnormality. No lymphadenopathy. No free air or free fluid. There is mild inflammatory changes and fluid surrounding the colon in the left lower abdomen, compatible with acute diverticulitis. The colon is redundant. No evidence for abscess or free air. Small amount of free fluid in the pelvis. There is a 1.9 cm righ t adnexal cyst, likely ovarian. No free air. Gallbladder is present. No significant vascular abnormal ity. No lymphadenopathy. No acute osseous abnormality. IMPRESSION: 1. Acute uncomplicated diverticulitis of the colon in the left mid abdomen. Reviewed, dictated and finalized at location []
== END 2023-04-28 08:07 | disposition home or self-care (01) ==
PROVIDERS: PCP Emergency Medicine; Visit Provider Emergency Medicine
DX: R10.84 Generalized abdominal pain (principal); K57.32 Diverticulitis of large intestine without perforation or abscess without bleeding
CPT/HCPCS: 74177; Q9967

== ENCOUNTER 2023-05-13 15:49 | Outpatient (CLI) | payer OTHER, SELFPAY ==
[2023-05-13 16:02] LABS: Basophils Absolute Auto 0.1 K/mm3 (0.0-0.1); Basophils Percent Auto 0.9 % (0.2-1.2); Eosinophils Absolute Auto 0.1 K/mm3 (0-0.3); Eosinophils Percent Auto 1.4 % (0-4.4); Hematocrit 36.9 % (37.0-47.0); Hemoglobin 11.9 g/dL (12.0-15.0); Immature Granulocyte Absolute 0.02 K/mm3 (0.00-0.031); Immature Granulocyte Percent A 0.3 % (0-0.5); Lymphocytes Absolute Auto 2.47 K/mm3 (0.9-3.2); Lymphocytes Percent Auto 31.2 % (18.3-44.2); Mean Corpuscular HGB Conc 32.2 g/dl (32-36); Mean Corpuscular Hemoglobin 27.2 pg (26-34); Mean Corpuscular Volume 84.4 fl (80-100); Mean Platelet Volume 9.2 fl (7.4-10.4); Monocytes Absolute Auto 0.5 K/mm3 (0.1-0.6); Monocytes Percent Auto 5.7 % (2.6-8.5); Neutrophils Absolute Auto 4.8 K/mm3 (1.3-6.7); Neutrophils Percent Auto 60.5 % (45.5-73.1); Platelet Count Result 349 k/mm3 (150-375); Red Blood Count 4.37 M/mm3 (4.2-5.4); Red Cell Distribution Width 13.4 % (11.5-14.5); White Blood Count 7.9 K/mm3 (4.5-10.0)
[2023-05-13 18:00] LABS: Iron 124 ug/dL (37-170)
[2023-05-13 18:03] LABS: Alanine Aminotransferase 21 U/L (6-35); Albumin Level 4.5 g/dL (3.5-5.1); Alkaline Phosphatase 58 U/L (38-126); Anion Gap 7 mmol/L (8-16); Aspartate Amino Transferase 32 U/L (14-36); Bilirubin,Total 0.4 mg/dL (0.2-1.3); Blood Urea Nitrogen 16 mg/dL (7-17); Calcium 9.3 mg/dL (8.4-10.2); Carbon Dioxide 32 mmol/L (22-30); Chloride 99 mmol/L (98-107); Estimated Glomerular Filt Rate > 60; Glucose 108 mg/dL (65-110); Potassium 4.2 mmol/L (3.4-5.0); Sodium 138 mmol/L (137-145)
[2023-05-13 18:10] LABS: Percent Iron Saturation 30 % (20-50)
[2023-05-13 18:37] LABS: Ferritin 7.83 ng/mL (6.24-137)
[2023-05-13 19:15] LABS: Folic Acid > 20.0 ng/mL (2.76->20); Vitamin B12 > 1000.0 pg/mL (239-931)
[2023-05-16 07:48] LABS: Methylmalonic Acid 87 nmol/L (87-318)
== END 2023-05-13 15:50 | disposition home or self-care (01) ==
LOC: ANHLAB 15:50
PROVIDERS: PCP Emergency Medicine; Visit Provider Internal Medicine Hematology & Oncology
DX: D64.9 Anemia, unspecified (principal)
CPT/HCPCS: 36415; 80053; 82607; 82728; 82746; 83540; 83550; 83921; 84238; 85025

== ENCOUNTER 2023-10-05 15:25 | Outpatient (CLI) | payer OTHER, SELFPAY ==
[2023-10-05 16:21] LABS: Influenza A QL RT-PCR Negative (Negative); Influenza B QL RT-PCR Negative (Negative); RSV RNA, RT-PCR Negative (Negative); SARS-CoV-2 RNA PCR Negative (Negative)
== END 2023-10-05 15:26 | disposition home or self-care (01) ==
LOC: ANHLAB 15:26
PROVIDERS: PCP Emergency Medicine; Visit Provider Physician Assistant
DX: Z20.822 Contact with and (suspected) exposure to COVID-19 (principal)
CPT/HCPCS: 87637

== ENCOUNTER 2024-03-09 06:46 | Outpatient (CLI) | payer OTHER, SELFPAY ==
--- NOTE | ~2024-03-09 | CT_ITS ---
EXAMINATION: CTA neck DATE: 03/09/2024 07:23 INDICATION: Dissection of vertebral artery. TECHNIQUE: Computed tomographic angiography (CTA) of the neck was performed with 100 mL Omnipaque-350 intravenous contrast. Automated exposure control and iterative reconstruction technique were employe d. The dose-length product was 936.45 mGy-cm. Maximum intensity projection 3D-reconstructions were cr eated by the technologist on a separate workstation. COMPARISON: Thyroid ultrasound 04/01/2023 FINDINGS: The visualized portions of the lung apices demonstrate minimal atelectasis. There is a stab le 2.7 cm nodule in the thyroid status post benign biopsy. There are no pathologically enlarged lymph nodes. There is no visible plaque in the proximal internal carotid arteries. There is 0% stenosis of the proximal right internal carotid artery relative to normal distal artery lumen diameter (NASCET c riteria). There is 0% stenosis of the proximal left internal carotid artery relative to normal distal artery lumen diameter. There is a dissection of cervical left vertebral artery with contrast opacifi cation of the true and false lumens. There is mild cervical spondylosis. IMPRESSION: 1. Dissection of left vertebral artery. 2. 0% stenosis of the proximal internal carotid arteries relative to normal distal artery lumen diame ters (NASCET criteria). Reviewed, dictated and finalized at location E. IMPRESSION: 1. Dissection of left vertebral artery. 2. 0% stenosis of the proximal internal carotid arteries relative to normal dis tony artery lumen diameters (NASCET criteria).
[2024-03-09 08:10] LABS: Appearance Urine Clear (Clear); Bacteria Urine None Seen /hpf; Bilirubin Urine Negative (Negative); Blood Urine Trace (Negative); Color Urine Yellow (Yellow); Glucose Urine UA Negative (Negative); Ketones Urine Negative (Negative); Leukocyte Esterase Ur 1+ LEU/UL (Negative); Need Manual Microscopic Reviewed; Nitrate Urine Negative (Negative); Non Pathogenic Casts 0-2; Protein Urine Negative (Negative); RBC Urine 0-2 /hpf (0-2); Squamous Epithelial Cell Urine Occasional /hpf (Few); Urobilinogen Urine 0.2 mg/dL (<2.0); WBC Urine 21-50 /hpf (0-3); pH Urine 7.5 (5.0-9.0)
[2024-03-09 08:11] LABS: Add Urine Microscopic? YES; Specific Grav Ur 1.086 (1.001-1.035)
[2024-03-09 08:12] LABS: Basophils Percent Auto 0.7 % (0.2-1.2); Eosinophils Absolute Auto 0.1 K/mm3 (0-0.3); Eosinophils Percent Auto 1.7 % (0-4.4); Hematocrit 39.5 % (37.0-47.0); Hemoglobin 12.5 g/dL (12.0-15.0); Immature Granulocyte Absolute 0.02 K/mm3 (0.00-0.031); Immature Granulocyte Percent A 0.3 % (0-0.5); Lymphocytes Absolute Auto 1.79 K/mm3 (0.9-3.2); Lymphocytes Percent Auto 30.7 % (18.3-44.2); Mean Corpuscular HGB Conc 31.6 g/dl (32-36); Mean Corpuscular Hemoglobin 28.1 pg (26-34); Mean Corpuscular Volume 88.8 fl (80-100); Mean Platelet Volume 9.9 fl (7.4-10.4); Monocytes Absolute Auto 0.3 K/mm3 (0.1-0.6); Monocytes Percent Auto 5.5 % (2.6-8.5); Neutrophils Absolute Auto 3.6 K/mm3 (1.3-6.7); Neutrophils Percent Auto 61.1 % (45.5-73.1); Platelet Count Result 279 k/mm3 (150-375); Red Blood Count 4.45 M/mm3 (4.2-5.4); Red Cell Distribution Width 14.4 % (11.5-14.5); White Blood Count 5.8 K/mm3 (4.5-10.0)
[2024-03-09 08:22] LABS: Alanine Aminotransferase 14 U/L (6-35); Albumin Level 4.3 g/dL (3.5-5.1); Alkaline Phosphatase 44 U/L (38-126); Anion Gap 3 mmol/L (4-12); Aspartate Amino Transferase 23 U/L (14-36); Bilirubin,Total 0.6 mg/dL (0.2-1.3); Blood Urea Nitrogen 19 mg/dL (7-17); Calcium 8.8 mg/dL (8.4-10.2); Carbon Dioxide 31 mmol/L (22-30); Chloride 103 mmol/L (98-107); Cholesterol 163 mg/dL (0-200); Estimated Glomerular Filt Rate > 60; Glucose 88 mg/dL (65-110); HDL Direct 52 mg/dL; Phosphorus 3.6 mg/dL (2.5-4.5); Sodium 137 mmol/L (137-145); Triglycerides 92 mg/dL (<150)
[2024-03-09 08:32] LABS: Iron 111 ug/dL (37-170)
[2024-03-09 08:33] LABS: LDL Cholesterol Direct 93 mg/dL
[2024-03-09 08:41] LABS: Percent Iron Saturation 34 % (20-50)
[2024-03-09 09:03] LABS: Thyroid Stimulating Hormone Reflex 0.898 uIU/mL (0.465-4.68)
[2024-03-09 09:07] LABS: Ferritin 8.67 ng/mL (6.24-137)
[2024-03-09 09:33] LABS: Folic Acid > 20.0 ng/mL (2.76->20)
== END 2024-03-09 06:47 | disposition home or self-care (01) ==
PROVIDERS: PCP Emergency Medicine; Visit Provider Internal Medicine Cardiovascular Disease
DX: I77.74 Dissection of vertebral artery (principal); D60.9 Acquired pure red cell aplasia, unspecified; E04.1 Nontoxic single thyroid nodule; E06.3 Autoimmune thyroiditis; F41.1 Generalized anxiety disorder; G89.4 Chronic pain syndrome; N30.00 Acute cystitis without hematuria; Z00.01 Encounter for general adult medical examination with abnormal findings; Z98.84 Bariatric surgery status
CPT/HCPCS: 36415; 70498; 80061; 80069; 80076; 81001; 82607; 82728; 82746; 83540; 83550; 84443; 85025; 87086; Q9967

== ENCOUNTER 2024-03-09 15:30 | Outpatient (RCR) | payer OTHER, SELFPAY ==
--- NOTE | 2023-12-21 13:41 | OPREHPOC ---
Outpatient Therapy Plan of Care This is a Multidisciplinary Plan of Care that may contain components documented by all disciplines (PT, OT, and ST.) PT Problem 1 PT Problem #1 Knowledge Deficit PT Goal 1 Goal 1. Patient will perform independent HEP Target Visit 5 PT Problem 2 PT Problem #2 Pain PT Goal 1 Goal 1. Patient will report pain no higher than 2/10 with all normal work and home activities Target Visit 10 PT Problem 3 PT Problem #3 Impaired Range of Motion PT Goal 1 Goal 1. Improve left active flexion range to at least 160 for reaching tasks Target Visit 10 PT Problem 4 PT Problem #4 Impaired Strength PT Goal 1 Goal 1. Left shoulder strength to 5/5 in all planes to allow for cooking and cleaning tasks
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
--- NOTE | 2024-01-27 16:27 | PTOPPROG ---
Assessment and note entered by Gee Steele, PT Evaluation Information Assessment Status Progress Diagnosis Left Clavicle Fracture Subjective Information Patient reports that she feels her motion is doing really well but she feels weak and sore. 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 Would like to continue therapy to emphasize strengthening and stability. Assessment PT Clinical Summary Patient has made excellent progress to this point with shoulder ROM and strength. She continues to show functional strength deficits and will benefit from skilled therapy to address these deficits moving forward for group home potential building. Plan of Care Interventions Electrical Stimulation,Hot Pack/Cold Pack,Manual Therapy,Neuro Re-education,Patient/Caregiver Education,Therapeutic Activities,Therapeutic Exercise PT Services Indicated Yes Treatment Frequency and 2 times a week for 8 visits Duration These treatments will address the objective and functional deficits as defined above. The patient will be advanced safely and appropriately in order for the patient to progress towards his/her prior level of function. Additional exercises will be introduced and as well as a comprehensive home exercise program upon discharge, if needed, ?to ensure carryover of functional gains achieved in the clinic. This treatment plan has been reviewed and agreement upon by the patient.
--- NOTE | 2024-01-27 16:28 | OPREHPOC ---
Outpatient Therapy Plan of Care This is a Multidisciplinary Plan of Care that may contain components documented by all disciplines (PT, OT, and ST.) PT Problem 1 PT Problem #1 Knowledge Deficit PT Goal 1 Goal 1. Patient will perform independent HEP Target Visit 5 Progress Met PT Problem 2 PT Problem #2 Pain PT Goal 1 Goal 1. Patient will report pain no higher than 2/10 with all normal work and home activities Target Visit 10 Progress Partially Met Comment Improving. Occasional 3/10 PT Problem 3 PT Problem #3 Impaired Range of Motion PT Goal 1 Goal 1. Improve left active flexion range to at least 160 for reaching tasks Target Visit 10 Progress Met PT Problem 4 PT Problem #4 Impaired Strength PT Goal 1 Goal 1. Left shoulder strength to 5/5 in all planes to allow for cooking and cleaning tasks Target Visit 18 Progress Partially Met Comment Improving. Focus on goal moving forward. PT Goal 2 Goal Patient will improve Left shoulder external rotation strength to 5/5 to improve shoulder stability for ADLs Target Visit 18
--- NOTE | 2024-02-08 11:54 | PCPTNOTE ---
pt called and canceled today's appt due to having a migraine.
--- NOTE | 2024-03-02 16:35 | PCPTNOTE ---
pt called and canceled due to being ill.
--- NOTE | 2024-03-09 16:04 | PTOPDC ---
Assessment and note entered by Jesenia Perez, PT Discharge Information Assessment Status Discharge Diagnosis Left Clavicle Fracture Subjective Information had CTA done this AM per orders from Dr Deleon; having more L neck pain and headaches--to check vascular; am back to doing everything at work and home, but careful with pushing heavy pt in w/c-- co workers help her; has been doing the exercises without any troubles; Reported Pain Level Pain Score Self Report Additional Pain Score Comments pain range in the past week 0-6/10;top and anterior shoulder/ area of surgery; increase pain: when wake up in AM- stiff and tight repetitive motions with use of L arm decrease pain; kinesiotape, ice, heat, hot shower, stretching, moving and doing the exercises. has been massaging her scar and putting kinesiotape over shoulder and scar Assessment PT Clinical Summary Oksana has received 15 PT sessions. Compared to the initial evaluation: pain rating from 0-7/10 to 0-6/10; self assessment with Quick DASH from 45% to 9% limitation in activity level; strength has increased in L shoulder/UE, and has returned to her usual home and work tasks; ROM of L shoulder is WNL, with pain at end range of abduction motion; education completed for HEP, pain control and posture. The goals were achieved. Discharge PT services. She is to continue with her HEP. Plan of Care PT Services Indicated No
== END 2024-03-09 16:54 | disposition home or self-care (01) ==
LOC: ANHPT 15:30
PROVIDERS: PCP Emergency Medicine
DX: S42.022D Displaced fracture of shaft of left clavicle, subsequent encounter for fracture with routine healing (principal)
CPT/HCPCS: 97014; 97110; 97140; 97161; 97530; G0283

== ENCOUNTER 2024-05-15 08:38 | Outpatient (CLI) | payer OTHER, SELFPAY ==
--- NOTE | ~2024-05-15 | US_ITS ---
EXAMINATION: US carotid duplex BI DATE: 05/15/2024 09:54 INDICATION: Vertebral artery dissection TECHNIQUE: Grayscale, color Doppler, and pulsed Doppler images of the cervical carotid arteries were obtained. The degree of vessel stenosis is placed in one of the following categories: normal, <50%, 5 0-69%, >=70% but less than near-occlusion, near-occlusion, or total occlusion. Note that percent sten osis relative to normal distal artery lumen diameter is indirectly measured from velocity measurement s as described by Sandeep, et al. Radiology 2003; 229:340-346. COMPARISON: None. FINDINGS: RIGHT: The right common carotid artery (CCA) peak systolic velocity (PSV) is 86 cm/s. The right internal car otid artery (ICA) PSV is 127 cm/s. The right ICA end-diastolic velocity (EDV) is 44 cm/s. The right I CA/CCA PSV ratio is 1.5. Grayscale and color Doppler images demonstrate no appreciable plaque or sten osis in the ICA. The external carotid artery (ECA) PSV is 158 cm/s. There is antegrade flow in the ri ght vertebral artery. LEFT: The left CCA PSV is 68 cm/s. The left ICA PSV is 119 cm/s. The left ICA EDV is 58 cm/s. The left ICA/ CCA PSV ratio is 1.7. Grayscale and color Doppler images demonstrate no appreciable plaque or stenosi s in the ICA. The ECA PSV is 77 cm/s. There is antegrade flow in the left vertebral artery on both si manpreet of a linear echogenic dissection flap. IMPRESSION: 1. No appreciable plaque or stenosis in the right or left internal carotid arteries. 2. 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 Reviewed, dictated and finalized at location A. IMPRESSION: 1. No appreciable plaque or stenosis in the right or left internal carotid daniel candi. 2. Left vertebral artery dissection with antegrade flow in both sides of the di ssection flap.
== END 2024-05-15 08:39 | disposition home or self-care (01) ==
PROVIDERS: PCP Emergency Medicine; Visit Provider Surgery Vascular Surgery
DX: I77.74 Dissection of vertebral artery (principal)
CPT/HCPCS: 93880

== ENCOUNTER 2024-09-26 11:00 | Outpatient (RCR) | payer OTHER, SELFPAY ==
--- NOTE | 2024-07-20 08:58 | OTOPEVAL1 ---
Assessment and note entered by Geronimo Mccracken, DIVINA/Adiel, CHT OT Evaluation Information 07/20/24 Assessment Status Evaluation Diagnosis Left carpal tunnel syndrome, Left cubital tunnel syndrome Subjective Information Patient reports experiencing symptoms for about 4 months. She wears a wrist brace and an elbow extension brace at night. She reports a constant, achy pain in the lateral upper arm. No pain in the hand, just feels numb . EMG (+) carpal and cubital tunnel syndrome. Reported Pain Level Pain Score 2: Self Report Additional Pain Score Comments Patient points to the lateral upper arm, lateral elbow, and lateral proximal forearm. Assessment OT Clinical Summary Patient referred to OT with dx of left carpal and cubital tunnel syndrome. She presents with pain, paresthesia, and weakness that limits functional use of the left UE for ADLs. Skilled OT indicated for HEP instruction, body mechanics education, strengthening, nerve glides, manual tx, and modalities to reduce nerve compression, improve functional strength, and improve functional use of the left UE. Plan of Care Interventions Therapeutic Exercise,Manual Therapy,Therapeutic Activities,Hot Pack/Cold Pack,Ultrasound,Paraffin OT Services Indicated Yes Treatment Frequency and 1-2x/week for 8 visits Duration These treatments will address the objective and functional deficits as defined above. The patient will be advanced safely and appropriately in order for the patient to progress towards his/her prior level of function. Additional exercises will be introduced and as well as a comprehensive home exercise program upon discharge, if needed, ?to ensure carryover of functional gains achieved in the clinic. This treatment plan has been reviewed and agreement upon by the patient.
--- NOTE | 2024-07-20 08:58 | OPREHPOC ---
Outpatient Therapy Plan of Care This is a Multidisciplinary Plan of Care that may contain components documented by all disciplines (PT, OT, and ST.) OT Problem 1 OT Problem #1 Knowledge Deficit OT Goal 1 Goal / Goal Update 1. Patient to be independent with instructed materials. Target Visit 8 OT Problem 2 OT Problem #2 Pain OT Goal 1 Goal / Goal Update 1. Patient to report reduced pain at rest to 0/10. 2. Patient to report reduced pain during ADLs to 2 /10 or less. Target Visit 8 OT Problem 3 OT Problem #3 Impaired Flexibility OT Goal 1 Goal / Goal Update 1. Patient to be able to complete 10 reps of all of the nerve glides without onset of paresthesia. Target Visit 8 OT Problem 4 OT Problem #4 Impaired Strength OT Goal 1 Goal / Goal Update 1. 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
--- NOTE | 2024-07-31 10:14 | OTOPDC ---
Assessment and note entered by Geronimo Mccracken, OTR/L, CHT OT Discharge Notification 07/31/24 OT Clinical Summary Patient evaluated by OT 07/20/24 for dx of left carpal and cubital tunnel. She called today to cancel all OT appointments due to the findings of her cervical MRI. She reports her neurologist is recommending PT vs. OT at this time. D/C OT.
--- NOTE | 2024-08-03 12:03 | OPREHPOC ---
Outpatient Therapy Plan of Care This is a Multidisciplinary Plan of Care that may contain components documented by all disciplines (PT, OT, and ST.) PT Problem 1 PT Problem #1 Knowledge Deficit PT Goal 1 Goal / Goal Update *indep with HEP * use correct posture with exercises Target Visit 10 PT Problem 2 PT Problem #2 Pain PT Goal 1 Goal / Goal Update 1* pain rating at worst of 5/10 2* radicular pain into L fingers intermittent 3* with sleeping awaken 1x/night due to pain 4* self assessment Neck Disability Index rating of 28% limitation in activity level Target Visit 10 PT Problem 3 PT Problem #3 Impaired Range of Motion PT Goal 1 Goal / Goal Update increase active cervical and L shoulder ROM to improve driving, work and self care tasks 1* cervical rotation R 55' 2* cervical rotation L 55' 3* L shoulder flexion 130' 4* L shoulder abduction 120' Target Visit 10 PT Problem 4 PT Problem #4 Impaired Strength PT Goal 1 Goal / Goal Update * 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 Patient to be independent with instructed materials. Target Visit 8 OT Problem 2 OT Problem #2 Pain OT Goal 1 Goal / Goal Update 1. Patient to report reduced pain at rest to 0/10. 2. Patient to report reduced pain during ADLs to 2 /10 or less. Target Visit 8 OT Problem 3 OT Problem #3 Impaired Flexibility OT Goal 1 Goal / Goal Update 1. Patient to be able to complete 10 reps of all of the nerve glides without onset of paresthesia. Target Visit 8 OT Problem 4 OT Problem #4 Impaired Strength OT Goal 1 Goal / Goal Update 1. 

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
--- NOTE | 2024-08-17 10:37 | PCPTNOTE ---
Pt called to cancel her PT appointment today due to being sick.
--- NOTE | 2024-09-05 13:54 | PCPTNOTE ---
Called and canceled, reason unknown. AKS
--- NOTE | 2024-09-26 12:06 | PTOPDC ---
Assessment and note entered by Jesenia Perez, PT Discharge Report Assessment Status Discharge Diagnosis cervical radiculopathy into L UE ICD-10 Condition Codes (PT) Cervicalgia M54.2 Onset May 2024 Subjective Information saw neurologist last week-- going to have MRI of head due to ear problems and had 2 trigger injections in lower head area/top neck; injections helped a little; have been doing all of the stretches, throughout the day; had missed therapy due to having covid-- have recovered from it now; want to stop coming for therapy due to changing jobs and insurance changes. Reported Pain Level Pain Score Self Report Additional Pain Score Comments pain range in the past week: 2-04/17: head, neck, upper traps; no longer have tingling in L arm; popping & clicking in L shoulder- without pain with sleeping awaken 2-3x/night due to pain and position she is in increase pain: reaching overhead and any weight in hand, stress and tightness of muscles decrease pain: rest, stretching, muscle relaxer meds & pain pills PRN; massages her neck and shoulder dry needling; use theracane for pressure point massage. have not been using heat or ice much lately; reinforced use of heat or ice and kinesiotape use PRN; her assist her with taping. kinesiotape strip applied: over upper traps> thoracic areas and ant>lat>post GH joint Assessment PT Clinical Summary Oksana has received a total of 8 PT sessions. She called/canceled 2 due to illness. 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 Education completed for HEP, pain control and posture. The goals were partially met. Discharge PT services. She is to continue with her HEP. Plan of Care PT Services Indicated No
== END 2024-09-26 13:50 | disposition home or self-care (01) ==
LOC: ANHPT 11:00
PROVIDERS: PCP Emergency Medicine
DX: M54.12 Radiculopathy, cervical region (principal); S42.022A Displaced fracture of shaft of left clavicle, initial encounter for closed fracture
CPT/HCPCS: 97110; 97140; 97162; 97166; 97530

== ENCOUNTER 2024-09-28 07:46 | Outpatient (CLI) | payer OTHER, SELFPAY ==
[2024-09-28 08:38] LABS: Add Urine Microscopic? YES; Appearance Urine Cloudy (Clear); Bacteria Urine 4+ /hpf; Bilirubin Urine Negative (Negative); Blood Urine Non-Hemolyzed Trace (Negative); Color Urine Yellow (Yellow); Glucose Urine UA Negative (Negative); Ketones Urine Negative (Negative); Leukocyte Esterase Ur 2+ LEU/UL (Negative); Nitrate Urine Positive (Negative); Non Pathogenic Casts 0-2; Protein Urine Negative (Negative); Specific Grav Ur 1.026 (1.001-1.035); Squamous Epithelial Cell Urine Occasional /hpf (Few); pH Urine 6.5 (5.0-9.0)
== END 2024-09-28 07:47 | disposition home or self-care (01) ==
PROVIDERS: PCP Emergency Medicine; Visit Provider Emergency Medicine
DX: N30.00 Acute cystitis without hematuria (principal)
CPT/HCPCS: 81001; 87077; 87086; 87186

== ENCOUNTER 2025-07-03 15:50 | Emergency (ER) | payer OTHER, SELFPAY ==
--- OUTSIDE RECORDS SUMMARY | 2025-07-03 04:14 | XMS_ITS | Continuity of Care Document ---
Author Organization [facility] Address [address] [place] [address] [place] [address] Phone Care Team Providers Care Nondestructive Tester Name Role Phone Gwyn Deleon MD Unavailable Unavailable Allergies, Adverse Reactions, Alerts Substance Reaction Status Criticality No Known Allergies Active No Inform ation Medications Medication Instructions Dosage Effective Dates (start - stop) Status Comments Xanax 0.5 mg tablet take 1 tablet by oral route every 6 hours as needed for F41.1 0.5 MG - Active PRn for anxiety, avoid driving or operate machines amitriptyline 50 mg tablet take 1 tablet by oral route every day at bedtime 50 MG - Active Synthroid 112 mcg tablet take 1 tablet by oral route every day 112 MCG - Active hydrocodone 7.5 mg-acetaminophen 325 mg tablet take 1 tablet by oral route every 6 hours as needed for pain as needed for G89.4 1 tablet - Active PRN for pain, avoid driving or operate machines EpiPen 0.3 mg/0.3 mL injection, auto-injector inject 0.3 milliliter by intramuscular route once as needed for anaphylaxis as needed 0.3 MG - Active PRN for anaphylactic reaction Procedures Procedure Date OFFICE/OUTPATIENT VISIT, EST OFFICE/OUTPATIENT VISIT, EST OFFICE/OUTPATIENT VISIT, EST OFFICE/OUTPATIENT VISIT, EST OFFICE/OUTPATIENT VISIT, EST OFFICE/OUTPATIENT VISIT, EST OFFICE/OUTPATIENT VISIT, EST OFFICE/OUTPATIENT VISIT, EST PREV VISIT, EST, AGE 40-64 OFFICE/OUTPATIENT VISIT, EST OFFICE/OUTPATIENT VISIT, EST OFFICE/OUTPATIENT VISIT, EST OFFICE/OUTPATIENT VISIT, EST OFFICE/OUTPATIENT VISIT, EST OFFICE/OUTPATIENT VISIT, EST OFFICE/OUTPATIENT VISIT, EST PREV VISIT, EST, AGE 40-64 OFFICE/OUTPATIENT VISIT, EST OFFICE/OUTPATIENT VISIT, EST OFFICE/OUTPATIENT VISIT, EST OFFICE/OUTPATIENT VISIT, EST OFFICE/OUTPATIENT VISIT, EST OFFICE/OUTPATIENT VISIT, EST OFFICE/OUTPATIENT VISIT, EST OFFICE/OUTPATIENT VISIT, EST PREV VISIT, EST, AGE 40-64 OFFICE/OUTPATIENT VISIT, EST OFFICE/OUTPATIENT VISIT, EST OFFICE/OUTPATIENT VISIT, EST OFFICE/OUTPATIENT VISIT, EST OFFICE/OUTPATIENT VISIT, EST OFFICE/OUTPATIENT VISIT, EST OFFICE/OUTPATIENT VISIT, EST PREV VISIT, EST, AGE 40-64 OFFICE/OUTPATIENT VISIT, EST OFFICE/OUTPATIENT VISIT, EST OFFICE/OUTPATIENT VISIT, EST OFFICE/OUTPATIENT VISIT, EST PREV VISIT, EST, AGE 40-64 OFFICE/OUTPATIENT VISIT, EST OFFICE/OUTPATIENT VISIT, EST OFFICE/OUTPATIENT VISIT, EST OFFICE/OUTPATIENT VISIT, EST PREV VISIT, EST, AGE 40-64 OFFICE/OUTPATIENT VISIT, EST OFFICE/OUTPATIENT VISIT, EST OFFICE/OUTPATIENT VISIT, EST OFFICE/OUTPATIENT VISIT, EST OFFICE/OUTPATIENT VISIT, EST OFFICE/OUTPATIENT VISIT, EST OFFICE/OUTPATIENT VISIT, EST OFFICE/OUTPATIENT VISIT, EST OFFICE/OUTPATIENT VISIT, EST OFFICE/OUTPATIENT VISIT, EST OFFICE/OUTPATIENT VISIT, EST PREV VISIT, NEW, AGE 40-64 OFFICE/OUTPATIENT VISIT, NEW Advance Directives Directive Yes / No Effective Date File Name No Information Encounters Encounter Description Practice Location Reason(s) For Visit Diagnoses Date Provider Providers Copied on Encounter OFFICE/OUTPA TIENT VISIT, [facility], [address], [place], [place], [address], [place] tel:[phone] [facility] thyroid1 (chief complaint)insom nia1 (chief complaint)pain (chief complaint)anxie ty1 (chief complaint) Chronic pain syndromeGenera lized Anxiety DisorderHashim marci's thyroiditisOth er insomniaInconc lusive mammogram 5 Pancho Pascal. [address], [place], [place], [address] , [place]. tel:[phone] [facility], [address], [place], [place], [address], [place] tel:[phone] [facility] No Information 5 Pancho Pascal. [address], [place], [place], [address] , [place]. tel:[phone] OFFICE/OUTPA TIENT VISIT, [facility], [address], [place], [place], [address], [place] tel:[phone] [facility] pain (chief complaint)anxie ty1 (chief complaint)thyro id1 (chief complaint) Chronic pain syndromeGenera lized Anxiety DisorderHashim marci's thyroiditisEnc ounter for oth screening for malignant neoplasm of breast Jan-0 5 Pancho Pascal. [address], [address], [place], [place], [address] , [place]. tel:[phone] [facility], [address], [place], [place], [address], [place] tel:[phone] [facility] No Information 4 [facility] [place], [place], [address] , [place]. tel:[phone] OFFICE/OUTPA TIENT VISIT, [facility], [address], [address], [place] tel:[phone] [facility] anxiety1 (chief complaint)ulnar 1 (chief complaint)pain (chief complaint)thyro id1 (chief complaint)insom nia1 (chief complaint)UTI1 (chief complaint) Chronic pain syndromeGenera lized Anxiety DisorderHashim marci's thyroiditisLes ion of ulnar nerve, left upper limbOther insomniaEncntr screen mammogram for malignant neoplasm of breastAcute cystitis without hematuria 4 [facility]anch[facility] Yang [facility] [place], [place], [address] , [place]. tel:[phone] OFFICE/OUTPA TIENT VISIT, [facility], [address], [address], [place] tel:[phone] [facility] weight1 (chief complaint)anxie ty1 (chief complaint)neuro pathy1 (chief complaint)pain1 (chief complaint) Lesion of ulnar nerve, left upper limbAbnormal weight gainGeneralize d Anxiety DisorderHashim marci's thyroiditisChr onic pain syndrome 4 Pancho Yang [address], [address], [place], [place], [address] , [place]. tel:[phone] OFFICE/OUTPA TIENT VISIT, [facility], [address], [address], [place] tel:[phone] [facility] headache1 (chief complaint)clavi cle1 (chief complaint)weigh t1 (chief complaint) Dissection of vertebral arteryTension headacheAbnorm al weight gainChronic pain syndrome 4 Pancho Yang [address], [address], [place], [place], [address] , [place]. [phone] OFFICE/OUTPA TIENT VISIT, EST [facility], [address], [address], [place] tel:[phone] [facility] hashimoto1 (chief complaint)iron (chief complaint)anxie ty1 (chief complaint)veteb ral (chief complaint)weigh t1 (chief complaint) Essential (primary) hypertensionGe neralized Anxiety DisorderHashim marci's thyroiditisIro n deficiency anemiaDissecti on of vertebral arteryEncntr screen mammogram for malignant neoplasm of breastAbnormal weight gain 4 Pancho Pascal. [address], [place], [place], [address] , [place]. [phone] OFFICE/OUTPA TIENT VISIT, [facility], [address] [place], [address], [place] tel:[phone] [facility] anxiety1 (chief complaint)weigh t gani1 (chief complaint)insom nia1 (chief complaint)HTN (chief complaint) Essential (primary) hypertensionGe neralized Anxiety DisorderAbnorm al weight gainOther insomnia 4 Pancho Yang [address], [place], [place], [address] , [place]. tel:[phone] OFFICE/OUTPA TIENT VISIT, [facility], [address], [address], [place] tel:[phone] [facility] UTI1 (chief complaint)clavi cle1 (chief complaint)yash vish (chief complaint)iron deficiency1 (chief complaint)HTN (chief complaint) Acute cystitis without hematuriaIron deficiency anemiaHashimot o's thyroiditisChr onic pain syndromeEssent ial (primary) hypertension 4 Pancho Yang [address], [place], [place], [address] , [place]. [phone] PREV VISIT, EST, AGE 40-64 [facility], [address] [place], [place], [address], [place] tel:[phone] [facility] physical (chief complaint) Encounter for general adult medical exam w abnormal findingsThyroi d noduleGenerali zed Anxiety DisorderIron deficiency anemia 3 Pancho Pascal. [address], [place], [place], [address] , [place]. tel:[phone] OFFICE/OUTPA TIENT VISIT, [facility], [address], [place], [place], [address], [place] tel:[phone] [facility] weight1 (chief complaint)nause a1 (chief complaint) Abnormal weight gainNausea w/o vomiting 3 Pancho Pascal. [address], [place], [place], [address] , [place]. tel:[phone] OFFICE/OUTPA TIENT VISIT, [facility], [address], [place], [place], [address], [place] tel:[phone] [facility] anxiety1 (chief complaint)iron1 (chief complaint)diver ticulitis1 (chief complaint)weigh t1 (chief complaint) Generalized Anxiety DisorderIron deficiency anemiaAbnormal weight gainDiverticul itis of intestine w/o abscess w/o bleedingFamily history of ischemic cardiac disease 3 Pancho Pascal. [address], [place], [place], [address] , [place]. [phone] OFFICE/OUTPA TIENT VISIT, [facility], [address], [place], [place], [address], [place] tel:[phone] [facility] abd pain (chief complaint) Diverticulitis of intestine w/o abscess w/o bleeding 3 Pancho Pascal. [address], [place], [place], [address] , [place]. tel:[phone] OFFICE/OUTPA TIENT VISIT, [facility], [address], [address], [place] tel:[phone] [facility] Medicine nausea1 (chief complaint) Generalized abdominal painEssential (primary) hypertension 3 Pancho Yang [address], [address], [place], [place], [address] , [place]. tel:[phone] OFFICE/OUTPA TIENT VISIT, [facility], [address], [place], [place], [address], [place] tel:[phone] [facility] Medicine hashimoto1 (chief complaint)anemi a1 (chief complaint)anxie ty1 (chief complaint)weigh t1 (chief complaint) Generalized Anxiety DisorderAbnorm al weight gainHashimoto' s thyroiditisIro n deficiency anemiaFamily history of ischemic cardiac diseaseBariatr ic surgery status 3 Pancoh Yang [address], [address], [place], [place], [address] , [place]. tel:[phone] OFFICE/OUTPA TIENT VISIT, EST [facility], [address], [place], [place], [address], [place] tel:[phone] [facility] Medicine hashimoto1 (chief complaint)anxie ty1 (chief complaint)weigh t1 (chief complaint) Leonel's thyroiditisGen eralized Anxiety DisorderAbnorm al weight gain 3 Pancho Yang [address], [address], [place], [place], [address] , [place]. tel:[phone] PREV VISIT, EST, AGE 40-64 [facility], [address], [place], [place], [address], [place] tel:[phone] [facility] Medicine physical (chief complaint) Encounter for general adult medical examination without abnormal findings 3 Pancho Yang [address], [place], [place], [address] , [place]. tel:[phone] OFFICE/OUTPA TIENT VISIT, [facility], [address], [place], [place], [address], [place] tel:[phone] [facility] Medicine ABDOMINAL PAIN1 (chief complaint) Renal stoneOther specified disorders of bladderGeneral ized abdominal pain 2 Deleon Gwyn. [address], [place], [place], [address] , [place]. tel:[phone] OFFICE/OUTPA TIENT VISIT, [facility], [address], [place], [place], [address], [place] tel:[phone] [facility] abd pain1 (chief complaint) Benign essential microscopic hematuriaGener alized abdominal painFever 2 Deleon Gwyn. [address], [place], [place], [address] , [place]. tel:[phone] OFFICE/OUTPA TIENT VISIT, [facility], [address], [place], [place], [address], [place] tel:[phone] [facility] UTI1 (chief complaint)anxie ty1 (chief complaint)pneum onia1 (chief complaint) Acute cystitis without hematuriaPneum oniaGeneralize d Anxiety DisorderFlushi ng 2 Deleon Gwyn. [address], [place], [place], [address] , [place]. tel:[phone] OFFICE/OUTPA TIENT VISIT, [facility], [address], [place], [place], [address], [place] tel:[phone] [facility] anxiety1 (chief complaint)pneum onia1 (chief complaint)SBO (chief complaint) Incomplete bowel obstructionAsp iration pneumoniaGener alized Anxiety Disorder 2 Deleon Gwyn. [address], [place], [place], [address] , [place]. tel:[phone] OFFICE/OUTPA TIENT VISIT, [facility], [address], [place], [place], [address], [place] tel:[phone] [facility] SBO (chief complaint)pneum onia1 (chief complaint) Incomplete bowel obstructionPne umonia Jul- 2 Deleon Gwyn. [address], [address], [place], [place], [address] , [place]. tel:[phone] OFFICE/OUTPA TIENT VISIT, EST [facility], [address], [place], [place], [address], [place] tel:[phone] [facility] Medicine thyroid nodule1 (chief complaint)anxie ty1 (chief complaint)hot flash1 (chief complaint) Generalized Anxiety DisorderThyroi d noduleFlushing 2 Deleon Gwyn. [address], [address], [place], [place], [address] , [place]. tel:[phone] OFFICE/OUTPA TIENT VISIT, EST [facility], [address], [place], [place], [address], [place] tel:[phone] [facility] anemia1 (chief complaint)D (chief complaint)rash1 (chief complaint)UTI1 (chief complaint) Vitamin D deficiency, unspecifiedDis order of iron metabolism, unspecifiedAne miaUrticariaUr inary tract infectionGener alized Anxiety DisorderEncoun ter for oth screening for malignant neoplasm of breast 2 Pancho Gwyn. [address], [address], [place], [place], [address] , [place]. tel:[phone] OFFICE/OUTPA TIENT VISIT, EST [facility], [address], [place], [place], [address], [place] tel:[phone] [facility] Medicine UTI1 (chief complaint)anxie ty1 (chief complaint)insom nia1 (chief complaint) Urinary tract infectionGener alized Anxiety DisorderInsomn ia 2 Pancho Gwyn. [address], [place], [place], [address] , [place]. tel:[phone] PREV VISIT, EST, AGE 40-64 [facility], [address], [place], [place], [address], [place] tel:[phone] [facility] physical (chief complaint) Encounter for general adult medical examination without abnormal findings 2 Pancho Gwyn. [address], [place], [place], [address] , [place]. tel:[phone] OFFICE/OUTPA TIENT VISIT, [facility], [address], [place], [place], [address], [place] tel:[phone] [facility] COVID19 (chief complaint) Viral infection 2 Pancho Pascal. [address], [place], [place], [address] , [place]. tel:[phone] OFFICE/OUTPA TIENT VISIT, [facility], [address], [place], [place], [address], [place] tel:[phone] [facility] UTI1 (chief complaint)mole1 (chief complaint)anxie ty1 (chief complaint) Nevus, non-neoplastic Generalized Anxiety DisorderUrinar y tract infection 1 Pancho Pascal. [address], [place], [place], [address] , [place]. tel:[phone] OFFICE/OUTPA TIENT VISIT, [facility], [address], [place], [place], [address], [place] tel:[phone] [facility] UTI1 (chief complaint)const ipation1 (chief complaint) Urinary tract infectionIrrit able bowel syndrome with constipation 1 Pancho Pascal. [address], [place], [place], [address] , [place]. tel:[phone] OFFICE/OUTPA TIENT VISIT, [facility], [address], [place], [place], [address], [place] tel:[phone] [facility] sick (chief complaint)anxie ty1 (chief complaint)UTI1 (chief complaint) Viral infectionGener alized Anxiety DisorderDysuri a 1 Pancho Pascal. [address], [place], [place], [address] , [place]. tel:[phone] OFFICE/OUTPA TIENT VISIT, [facility], [address], [place], [place], [address], [place] tel:[phone] [facility] Medicine sick1 (chief complaint) Acute upper respiratory infection, unspecified 1 Pancho Yang [address], [place], [place], [address] , [place]. [phone] OFFICE/OUTPA TIENT VISIT, EST [facility], [address], [address], [place] tel:[phone] [facility] insomnia1 (chief complaint)anxie ty1 (chief complaint)hypot hyroidism1 (chief complaint)hemat uria1 (chief complaint) Hypothyroidism Generalized Anxiety DisorderInsomn iaEncounter for oth screening for malignant neoplasm of breastHematuri a 1 Pancho Yang [address], [address], [place], [place], [address] , [place]. [phone] OFFICE/OUTPA TIENT VISIT, EST [facility], [address], [address], [place] tel:[phone] [facility] anxiety1 (chief complaint) Generalized Anxiety Disorder 1 Pancho Yang [address], [address] , [place]. tel:[phone] PREV VISIT, EST, AGE 40-64 [facility], [address], [address], [place] tel:[phone] [facility] physical (chief complaint) Encounter for general adult medical examination without abnormal findings 0 Pancho Yang [address], [place], [place], [address] , [place]. [phone] OFFICE/OUTPA TIENT VISIT, [facility], [address], [address], [place] tel:[phone] [facility] Medicine anxiety1 (chief complaint)hemat uria1 (chief complaint)hypot hyroidism1 (chief complaint)iBS1 (chief complaint)Well child HPI (chief complaint) Hypothyroidism HematuriaMixed irritable bowel syndromeGenera lized Anxiety Disorder Sep-3 0 Pancho Yang [address], [address], [place], [place], [address] , [place]. tel:[phone] OFFICE/OUTPA TIENT VISIT, EST [facility], [address], [place], [place], [address], [place] tel:[phone] [facility] sick (chief complaint) Viral infection 0 Pancho Pascal. [address], [address], [place], [place], [address] , [place]. tel:[phone] OFFICE/OUTPA TIENT VISIT, [facility], [address], [place], [place], [address], [place] tel:[phone] [facility] fatigue1 (chief complaint)UTI1 (chief complaint)hypot hyroidism1 (chief complaint)anxie ty1 (chief complaint) FatigueHematur iaAbdominal painHypothyroi dismGeneralize d Anxiety Disorder 0 Pancho Yang [address], [address], [place], [place], [address] , [place]. tel:[phone] OFFICE/OUTPA TIENT VISIT, [facility], [address], [place], [place], [address], [place] tel:[phone] [facility] UTI1 (chief complaint)thyro id nodue1 (chief complaint) Urinary tract infectionHemat uriaAbdominal painHypothyroi dism 0 Pancho Yang [address], [address], [place], [place], [address] , [place]. [phone] Referring Provider: Gwyn Deleon [address], [place], [place], [address]. tel:[phone] PREV VISIT, EST, AGE 40-64 [facility], [address], [place], [place], [address], [place] tel:[phone] [facility] Physical (chief complaint) Encntr for general adult medical exam w/o abnormal findings 0 Pancho Pascal. [address], [address], [place], [place], [address] , [place]. tel:[phone] Referring Provider: Donaldo Omer [facility] A, [place], [place], [address]. tel:[phone] OFFICE/OUTPA TIENT VISIT, [facility], [address] [place] [address] [address], [address], [place] tel:[phone] [facility] fatigue1 (chief complaint)anemi a1 (chief complaint)renal (chief complaint)chest pain1 (chief complaint)thyro id1 (chief complaint) FatigueRenal diseaseAnemiaC hest painShortness of breathGenerali zed Anxiety Disorder Sep-2 9 Pancho Pascal. [address], [place], [place], [address] , [place]. tel:[phone] Referring Provider: Donaldo Omer [facility], [place], [place], [address]. tel:[phone] OFFICE/OUTPA TIENT VISIT, [facility], [address], [address], [place] tel:[phone] [facility] back pain1 (chief complaint)anxie ty1 (chief complaint) AnemiaRenal diseaseMuscle spasm of backHypothyroi dismChest painGeneralize d Anxiety Disorder Sep-0 9 Pancho Pascal. [address], [facility] A, [place], [place], [address] , [place]. tel:[phone] Referring Provider: Donaldo Omer [facility] A, [place], [place], [address]. tel:[phone] OFFICE/OUTPA TIENT VISIT, [facility], [address], [address], [place] tel:[phone] [facility] IBS (chief complaint)anxie ty1 (chief complaint)thyro id1 (chief complaint)mammo (chief complaint)weigh t loss1 (chief complaint) Generalized Anxiety DisorderEncoun ter for oth screening for malignant neoplasm of breastMixed irritable bowel syndromeHypoth yroidismUrinar y tract infectionBaria tric surgery status 9 Pancho Pascal. [address], [place], [address] , [place]. [phone] Referring Provider: Donaldo Omer [address], [place], [place], [address]. tel:[phone] OFFICE/OUTPA TIENT VISIT, EST [facility], [address], [place], [place], [address], [place] [phone] [facility] Medicine sick1 (chief complaint)anxie ty1 (chief complaint)nause a1 (chief complaint)UTI1 (chief complaint) Generalized Anxiety DisorderAcute bronchitisUrin heron tract infectionVeterans Health [facility] Phoenixia tric surgery status 9 Pancho Yang [address], [address], [place], [place], [address] , [place]. [phone] Referring Provider: Donaldo Omer [address], [place], [place], [address]. tel:[phone] PREV VISIT, EST, AGE 40-64 [facility], [address], [place], [place], [address], [place] tel:[phone] [facility] Physical (chief complaint) Encounter for general adult medical exam w abnormal findingsType 2 diabetes mellitus without complicationsE ssential (primary) hypertensionBa riatric surgery statusGenerali zed Anxiety DisorderNevus, non-neoplastic Hypothyroidism Mixed irritable bowel syndrome 8 Pancho Yang [address], [address], [place], [place], [address] , [place]. [phone] Referring Provider: Donaldo Omer [address], [place], [place], [address]. tel:[phone] OFFICE/OUTPA TIENT VISIT, EST [facility], [address], [place], [place], [address], [place] tel:[phone] [facility] obesity1 (chief complaint) Body mass index (BMI) 39.0-39.9, adultAbnormal weight gain 8 Pancho Pascal. [address], [place], [place], [address] , [place]. tel:[phone] Referring Provider: Donaldo Omer [address], [place], [place], [address]. tel:[phone] OFFICE/OUTPA TIENT VISIT, [facility], [address], [place], [place], [address], [place] tel:[phone] [facility] HTN (chief complaint)DM (chief complaint)obesi ty1 (chief complaint)anxie ty1 (chief complaint) Body mass index (BMI) 39.0-39.9, adultEssential (primary) hypertensionTy pe 2 diabetes mellitus without complicationsG eneralized Anxiety Disorder 8 Pancho Pascal. [address], [place], [place], [address] , [place]. tel:[phone] Referring Provider: Donaldo Omer [address], [place], [place], [address]. tel:[phone] OFFICE/OUTPA TIENT VISIT, [facility], [address], [place], [place], [address], [place] [phone] [facility] HTN (chief complaint)DM (chief complaint)obesi ty1 (chief complaint)anxie ty1 (chief complaint) Body mass index (BMI) 40.0-44.9, adultType 2 diabetes mellitus without complicationsE ssential (primary) hypertension 8 Pancho Pascal. [address], [address], [place], [place], [address] , [place]. tel:[phone] Referring Provider: Donaldo Omer [address], [place], [place], [address]. tel:[phone] OFFICE/OUTPA TIENT VISIT, [facility], [address], [place], [place], [address], [place] tel:[phone] [facility] Medicine DM (chief complaint)iron1 (chief complaint)obesi ty1 (chief complaint)HTN (chief complaint) Type 2 diabetes mellitus without complicationsE ssential (primary) hypertensionAb normal weight gainDisorder of iron metabolism, unspecifiedHyp erlipidemia 8 Pancho Pascal. [address], [address], [place], [place], [address] , [place]. tel:[phone] Referring Provider: Donaldo Omer [address], [place], [place], [address]. tel:[phone] OFFICE/OUTPA TIENT VISIT, [facility], [address], [place], [place], [address], [place] tel:[phone] [facility] Medicine HTN (chief complaint)obesi ty1 (chief complaint)head tremor1 (chief complaint) Body mass index (BMI) 40.0-44.9, adultEssential (primary) hypertensionTr emor 8 Pancho Yang [address], [address], [place], [place], [address] , [place]. tel:[phone] Referring Provider: Donaldo Omer [address], [place], [place], [address]. tel:[phone] OFFICE/OUTPA TIENT VISIT, [facility], [address], [place], [place], [address], [place] tel:[phone] [facility] HTN (chief complaint)weigh t loss1 (chief complaint)GERD1 (chief complaint) GERD w/o esophagitisEss ential (primary) hypertensionBo dy mass index (BMI) 40.0-44.9, adult 8 Pancho Pascal. [address], [address], [place], [place], [address] , [place]. tel:[phone] Referring Provider: Donaldo Omer [address], [place], [place], [address]. tel:[phone] OFFICE/OUTPA TIENT VISIT, [facility], [address], [place], [place], [address], [place] tel:[phone] [facility] Medicine HTN (chief complaint)obesi ty1 (chief complaint)sleep apnea1 (chief complaint)GERD1 (chief complaint) Essential (primary) hypertensionBo dy mass index (BMI) 40.0-44.9, adultGERD w/o esophagitisFat igue 8 Pancho Yang [address], [address], [place], [place], [address] , [place]. [phone] Referring Provider: Donaldo Omer [address], [place], [place], [address]. tel:[phone] OFFICE/OUTPA TIENT VISIT, [facility], [address], [place], [place], [address], [place] [phone] [facility] thyroid (chief complaint)IBS1 (chief complaint)fatig ue1 (chief complaint)obesi ty1 (chief complaint) Mixed irritable bowel syndromeHypoth yroidismFatigu eBody mass index (BMI) 40.0-44.9, adult 7 Pancho Yang [address], [address], [place], [place], [address] , [place]. tel:[phone] Referring Provider: Donaldo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 states that intermittent left flank pain ,Pt denies any fever, chill or urinary symptoms hypothyroidism Pt has hypothyro idism .Pt has stable nodule Pt is seeing endo .Pt has 100 mcg synthroid currently Pt just lab done by endo last week .Her thyroid ultrasound is benign, Pt denies any dysphagia iBS1 Pt has IBS Pt barnard s bloating. Pt doing ok with amitriptyline. Pt needs refill Well child HPI sick Pt c/o fever as high as 101, mild productive cough, achy, fatigue since yesterday. Pt denies any sob. Pt denies any sore throat .Pt has mild sinus drainage Pt feels slightly lightheadedness pt denies any Gi issue Pt denies any exposure to COVID-19. Pt denies any recent travel. Pt denies any dysphagia fatigue1 Pt has mild fati pablo but improving with higher dose of synthroid Pt denies any headache chest pain, palpitation, etc Pt does snore. 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 Patient denies any suicidal homicidal thoughts. Patient denies any crying spells. Patient takes Xanax PRN and doing okay. hypothyroidism1 Pt has low thyro id. Pt is seeing endo now and she is on 175 mcg synthroid Pt feels less fatigue Pt denies any dysphagia or neck pain UTI1 Pt denies any ur inary symptoms .Pt did take abx which did help ,Pt still has some occasional bilateral flank pain but she has not done renal ultrasound yet. pt denies any fever, chill, urinary symptoms UTI1 Pt c/o urinary f requency, urgency. bilateral flank pain for one week. Pt just had UA done which showed mild high wBC and hematuria, Unfortunately lab did not reflex to urine culture. Pt denies any fever, chill. Pt denies any nausea, vomiting. Pt states that she has history or renal stone thyroid nodue1 Pt has thyroid n odule. Pt is seeing endo currently and she just did some lab work. Pt will repeat thyroid ultrasound. Pt denies any dysphagia or neck pain Physical Pt needs annual physical Pt has chronic anxiety ,Pt denies any depression or any suicidal thought Pt denies any crying spells. Pt has insomnia .Pt takes amitriptyline and doing ok. Pt does snore Pt has chronic fatigue.. Pt still has not done sleep study yet. Pt has benign thyroid nodule Pt has low thyroid. Pt takes synthroid Pt denies any dysphagia or neck pain. ,Pt denies any other complaints thyroid1 Pt has autoimmun e thyroid disease. Pt takes synthroid ,Pt denies any dysphagia. Ultrasound showed suspicious thyroid nodule chest pain1 Pt c/o intermitt ent heavy feeling around her chest area with sob for two weeks. Pt also has some vague left side upper back pain, pt denies any exertional chest pain or sob. Pt denies any acute symptoms. her d dimer was negative. Pt denies any abdominal pain. Pt has occasional back pain which is not very often. Pt denies any calf pain or recent travel. Pt states that overall her symptoms are improving. fatigue1 PT feels severe fatigue with dry mouth for the past two weeks. Pt denies any polyuria, polydipsia. Pt denies any chest pain or sob. pt denies any calf pain Pt denies any recent travel. Pt denies any snoring pt states that she does not feel tired in the morning but she feels extremely fatigue at night. pt did wake up several times in the middle of the night with difficulty breathing anemia1 Pt is not anemic on lab work and she does have slightly low iron saturation. renal Renal function i s normal now on recent lab Pt has normal UO anxiety1 Pt has chronic a nxiety, Pt denies any depression or any suicidal thought, Pt denies any crying spells. Pt takes xanax PRN and doing ok back pain1 pt was at work s itting down and she felt sudden onset of sharp pain left side of lower back radiating to left upper back and also left arm numbness and tingling. Pt denies any weakness. Pt denies any neck pain initially but since then, the pain has spread to right side of her upper shoulder and mid back area. pt denies any chest pain Pt states that the pain initially was 8/10 and now is around 5/10. pt states that she feels pain now without any activity Pt states that taking deep breath seems to make the pain worse pt denies any calf pain or any recent travel. Pt went to ER. Pt had lab done which showed mild anemic and low renal pt does not have any renal stone CT scan of abdomen/pelvis without contrast was unmarketable. Pt was given vicodin and muscle relaxant which helped slightly pt denies any urinary symptoms. pt had negative UA Pt denies any coughing, sob anxiety1 Pt has chronic a nxiety Pt denies any depression or any suicidal thought Pt denies any crying spells. Pt has flying anxiety as well Pt will fly to [employer] soon and she wants some xanax PRN. thyroid1 Pt has leonel disease. Pt takes synthroid. Pt had thyroid nodule s/p benign biopsy 2016. Pt gustavo any thyroid nodule or thyromegaly. IBS Additional infor shemarlalo: Pt has IBS with constipation and diarrhea andPt had benign colonoscopy Pt doing ok with amitriptyline Pt denies any abd pain or bleeding or change in bowel mammo Pt denies any br east issue ,Pt still has not done mammogram yet weight loss1 Pt lost good emanuel unt of weight post . Pt is on vitamin supplement. Pt feels well. Pt denies any nausea, vomiting UTI1 Patient denies a ny UTI symptoms. Patient took augmentin last month Pt denies any flank pain, fever, chill nausea1 Patient is statu s post bariatric surgery. Patient complaint of occasional nausea. Patient wants refill Zofran. Patient denies any abdominal pain. 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 Patient denies any suicidal homicidal thoughts. Patient denies any crying spells. Pt take xanax PRN and doing ok pt failed multiple SSRIs sick1 Patient complain ed of severe productive cough with green phlegm, mild sore throat, sinus congestion runny nose. Patient also complained of earache. Patient denies any fever. Patient started to have above symptoms for about a week. Patient failed [id number] medication. Physical Pt needs annual physical. Pt had gastric bypass surgery 3 months ago and she lost 43 pounds during last 3 months. pt is off metformin and losartan. since her weight loss. Pt denies any snoring and she sleeps ok now and she does not want sleep study anymore. Pt has mild IBS symptoms with insomnia and she is doing ok with amitriptyline. Pt has chronic anxiety. Pt denies any depression or any suicidal thought. Pt denies any crying spells. Pt also has chronic intermittent rash around her cheek area. Pt denies any itching or acne. obesity1 pt is obese. Pt will have bypass surgery soon. Pt needs surgical clearance. Her BMI is near 40. Pt has HTn and DM and possible sleep apnea. Pt failed diet and exercise and weight loss. Pt is a good candidate for bariatric surgery. anxiety1 Pt has anxiety a nd irritation and panic attacks. Pt denies any depression or any suicidal thought. Pt takes xanax PRN and doing ok. Pt only took xanax for 2-3 times during last month. Pt states that xanax helped her to calm down obesity1 Pt is morbidly o bese. Pt needs monthly weight loss assessment .Pt lost 6 pounds with diet and exercise Her BMI is 39 now. DM Pt has borderlin e DM. Pt takes metformin and she denies any polyuria, polydipsia. Pt denies any neuropathy symptoms HTN Pt has HTN. Pt t akes losartan 50 mg and her BP is better today. Pt denies any chest pain or headache HTN Pt has HTn. Pt t akes losartan 25 mg daily Pt denies any chest pain or headache anxiety1 Pt has been havi ng anxiety without depression recently. Pt has a lot of stress. Pt feels irritable and on edge. Pt denies any crying spells. Pt denies any suicidal or homicidal thought. DM Pt takes metform in only once per day Pt states that she has some diarrhea with 2nd dose of metformin. Pt denies any polyuria, polydipsia obesity1 Pt needs weight loss assessment for bariatric surgery pt has been diet and exercise pt lost several pounds HTN Her BP is border line today. Pt denies any chest pain or headache iron1 Pt has borderlin e low iron but she is not anemic. Pt denies any blood in urine obesity1 Pt is obese pt i s in the process of losing weight DM Pt is borderline diabetic now. Pt denies any polyuria, polydipsia. pt will have bypass surgery soon. head tremor1 Pt notices occas ional head termor for several months Pt denies any particular time. Pt states that she can usually feels the termor when she sit still. Pt denies any headache or neck pain. Pt denies any tremor rest of body. obesity1 Pt is obese. Pt is waiting to have bariatric surgery soon. Pt needs weight loss monthly assessment HTN Pt has HTn. Pt s tates that she is nervous about her weight so her BP is high today. Pt denies any chest pain or headache HTN Pt feels dizzy w ith losartn 50 mg and she has been cutting it to half and taking 25 mg and her BP is ok Her dizziness resolved. weight loss1 Pt is doing weig ht loss assessment. Pt lost two pounds with diet and exercise GERD1 Pt is only takin g protonix now pt is off omeprazole Pt only has gastritis on EGD Pt told me she has hiatel hernia but I dont see that on her EGD Pt states that protonix doing ok for her GERd Pt failed zantac. Pt could not tolerate without PPI GERD1 Pt has severe GE RD and she takes omepraozle and protonix? Pt told me GI told her due to severity of her symptoms, she should take both above. Pt states that it is helping slighlty with above HTN Pt has been havi ng HTn recenlty Pt states that her BP was consistently above 150/90 during last several months Pt denies any chest pain. Pt feels mild headache but not so bad Pt denies any head injury. Pt denies any vision change Pt denies any nausea, vomiting. sleep apnea1 Pt has occassion al snores at night. Pt denies any diffiuculty catching her breath at night. Pt sometimes feels fatigue in the morning. Pt sleeps all night with amitriptyilne obesity1 Pt is obese her BMI is over 40 Pt is in the process of setting up gastric bypass surgery. Pt needs monthly weight assessment. IBS1 Pt has ibs. pt h as constipation and diarrhea. Pt had negative EGD and colonoscopy by gi per patient. Pt states that amitriptyilne and bentyl helps slightly. fatigue1 Pt feels fatigue . Pt denies any sob. Pt denies any snoring or any trouble with sleeping at night obesity1 Pt has high BMI pt failed diet and exercise. Pt is prediabetic. Pt denies any polyuria, polydipsia thyroid Pt has leonel disese. pt takes 88 mcg synthroid and her tSH is ok. Her thyroid nodule is benign hypothyroidism1 Pt just started synthroid about two weeks ago. Pt denies any fatigue or chest pain or palpitation thyroid nodule1 Pt has a 2.4 cm thyroid nodule on ultrasound. Pt denies any dysphagia IBS IBS1 Pt is taking 75 mg amitriptyline qhs currently. Pt has not had any abdominal pain. Pt denies any nausea, vomiting, diarrhea DM Pt is borderline Diabetic. Pt states that metformin made her sick to stomach in the past. Pt denies any polyuria,. polyuria. hypothyroidism Pt has low thryo id. Pt is on armour thyroid. Pt used to take 88 mcg synthroid which made her tired so her prevoius PCP put her back on armour. Pt felt fatigue with 88 mcg syntyhroid. Pt felt better with 100 mcg synthroid but was too high. IBS IBS1 Pt has IBS Pt barnard s constipation and diarrhea and cramp and bloating Pt takes amitrptyline, and zofan and bentyl. pt went to ER recetly and she is on sucrfate now. Pt denies any abd pain Pt takes omeprzole also HTN Pt has mild HTN today. Pt deneis any chest pain or headache PHysical Pt needs annual physical. Pt has low thyroid. Pt takes armour thyorid. Pt used to take 100 mcg synthroid which was too high but 88 mcg made her very tired and fatigue. Pt was started on armour thyroid for one year and she has not had her level checked for over 8 months. Pt states that she has not felt any difference with armour. pt has IBS. Pt takes amitriptyilne, bentyl and and doing ok but she has occassional flares ups. Pt c/o stabbing abdominal pain and nausea, diarrhea for one week. Pt feels spasms of colon for two days. Pt usually has to go to hopsital for it when flare up. pt has diarrhe without blood now Pt feels bloated Pt also takes zofran for nausea. Pt also was told she is prediabetic. Pt denies any polyuria, polydipsia. Pt used to take metformin Instructions Date Instruction Additional Infor shemarion Special diet education Related t o Body mass index (BMI) 27.0-27.9, adult Increase physical activity Relat ed to Fatigue Increase physical activity Relat ed to Renal disease Special diet education Related t o Body mass index (BMI) 29.0-29.9, adult Special diet education Related t o Body mass index (BMI) 26.0-26.9, adult Increase physical activity Relat ed to Generalized Anxiety Disorder Special diet education Related t o Body mass index (BMI) 29.0-29.9, adult Increase physical activity Relat ed to Generalized Anxiety Disorder Weight management Related to Gen eralized Anxiety Disorder Special diet education Related t o Body mass index (BMI) 32.0-32.9, adult Increase physical activity Relat ed to Encounter for general adult medical exam w abnormal findings Weight management Related to Enc ounter for general adult medical exam w abnormal findings Special diet education Related t o Body mass index (BMI) 39.0-39.9, adult Increase physical activity Relat ed to Abnormal weight gain Weight management Related to Abn ormal weight gain Special diet education Related t o Body mass index (BMI) 39.0-39.9, adult Increase activity. Related to Es sential (primary) hypertension Follow a low sodium diet. Relate d to Essential (primary) hypertension Prescribed dietary intake Relate d to Body mass index (BMI) 40.0-44.9, adult Increase physical activity. Rela rachel to Type 2 diabetes mellitus without complications Special diet education Related t o Body mass index (BMI) 40.0-44.9, adult Special diet education Related t o Body mass index (BMI) 40.0-44.9, adult Special diet education Related t o Body mass index (BMI) 40.0-44.9, adult Weight management Related to Jose Juan mor Prescribed Activity and Exercise Education Related to Dietary Surveillance and Counseling Prescribed Diet Educ ation/Lifestyle Education Regarding Diet Related to Dietary Surveillance and Counseling Avoid provocative fo ods: citrus, alcohol, coffee, chocolate, mints Related to GERD w/o esophagitis Eat smaller meals, n o eating three hours prior to bedtime Related to GERD w/o esophagitis Elevate head of bed prior to sle ep Related to GERD w/o esophagitis Prescribed Activity and Exercise Education Related to Dietary Surveillance and Counseling Prescribed Diet Educ ation/Lifestyle Education Regarding Diet Related to Dietary Surveillance and Counseling Increase activity. Related to Es sential (primary) hypertension Follow a low sodium diet. Relate d to Essential (primary) hypertension Prescribed Activity and Exercise Education Related to Dietary Surveillance and Counseling Prescribed Diet Educ ation/Lifestyle Education Regarding Diet Related to Dietary Surveillance and Counseling Increase physical activity Relat ed to Mixed irritable bowel syndrome Weight management Related to Mix ed irritable bowel syndrome Prescribed Activity and Exercise Education Related to Dietary Surveillance and Counseling Prescribed Diet Educ ation/Lifestyle Education Regarding Diet Related to Dietary Surveillance and Counseling Increase physical activity Relat ed to Thyroid nodule Weight management Related to Thy roid nodule Prescribed Activity and Exercise Education Related to Dietary Surveillance and Counseling Prescribed Diet Educ ation/Lifestyle Education Regarding Diet Related to Dietary Surveillance and Counseling Increase physical activity Relat ed to Hypothyroidism Weight management Related to Hyp othyroidism Increase physical activity Relat ed to Encounter for general adult medical exam w abnormal findings Weight management Related to Enc ounter for general adult medical exam w abnormal findings Prescribed Activity and Exercise Education Related to Dietary Surveillance and Counseling Prescribed Diet Educ ation/Lifestyle Education Regarding Diet Related to Dietary Surveillance and Counseling Assessments Type Assessment Date assessment Chronic pain syndrome assessment Generalized Anxiety Disorder Jun assessment Leonel's thyroiditis 025 assessment Other insomnia assessment Inconclusive mammogram Mental Status Date Cognitive Assessment Orientation - [place] ed to time, place, person, situation.
--- OUTSIDE RECORDS SUMMARY | 2025-07-03 04:14 | XMS_ITS | Continuity of Care Document ---
Author Organization [facility] Address [address] [place] [address] [place] [address] Phone Care Team Providers [employer] Professor Name Role Phone Gwyn Deleon MD Unavailable [...] Providers Copied on Encounter OFFICE/OUTPA TIENT VISIT, [facility], [address], [place], [place], [address], [place] tel:[phone] [facility] thyroid1 (chief complaint)insom nia1 (chief complaint)pain (chief complaint)anxie ty1 (chief complaint) Chronic pain syndromeGenera lized Anxiety DisorderHashim marci's thyroiditisOth er insomniaInconc lusive mammogram 5 Pancho Pascal. [address], [place], [place], [address] , [place]. tel:[phone] [facility], [address], [place], [place], [address], [place] tel:[phone] [facility] No Information 5 Pancho Pascal. [address], [place], [place], [address] , [place]. tel:[phone] OFFICE/OUTPA TIENT VISIT, [facility], [address], [place], [place], [address], [place] tel:[phone] [facility] pain (chief complaint)anxie ty1 (chief complaint)thyro id1 (chief complaint) Chronic pain syndromeGenera lized Anxiety DisorderHashim marci's thyroiditisEnc ounter for oth screening for malignant neoplasm of breast Jan-0 5 Pancho Pascal. [address], [place], [place], [address] , [place]. tel:[phone] [facility], [address], [place], [place], [address], [place] tel:[phone] [facility] No Information 4 [facility]ancho Yang [address] [facility] [place], [place], [address] , [place]. tel:[phone] OFFICE/OUTPA TIENT VISIT, [facility], [address] [place], [address], [place] tel:[phone] [facility] anxiety1 (chief complaint)ulnar 1 (chief complaint)pain (chief complaint)thyro id1 (chief complaint)insom nia1 (chief complaint)UTI1 (chief complaint) Chronic pain syndromeGenera lized Anxiety DisorderHashim marci's thyroiditisLes ion of ulnar nerve, left upper limbOther insomniaEncntr screen mammogram for malignant neoplasm of breastAcute cystitis without hematuria 4 Pancho Yang [address] [facility], [place], [place], [address] , [place]. tel:[phone] OFFICE/OUTPA TIENT VISIT, [facility], [address] [place], [address], [place] tel:[phone] [facility] weight1 (chief complaint)anxie ty1 (chief complaint)neuro pathy1 (chief complaint)pain1 (chief complaint) Lesion of ulnar nerve, left upper limbAbnormal weight gainGeneralize d Anxiety DisorderHashim marci's thyroiditisChr onic pain syndrome 4 Pancho Yang [address], [place], [place], [address] , [place]. tel:[phone] OFFICE/OUTPA TIENT VISIT, [facility], [address] [place], [address], [place] tel:[phone] [facility] headache1 (chief complaint)clavi cle1 (chief complaint)weigh t1 (chief complaint) Dissection of vertebral arteryTension headacheAbnorm al weight gainChronic pain syndrome 4 Pancho Yang [address], [place], [address] , [place]. [phone] OFFICE/OUTPA TIENT VISIT, EST [facility], [address], [address], [place] tel:[phone] [facility] hashimoto1 (chief complaint)iron (chief complaint)anxie ty1 (chief complaint)veteb ral (chief complaint)weigh t1 (chief complaint) Essential (primary) hypertensionGe neralized Anxiety DisorderHashim marci's thyroiditisIro n deficiency anemiaDissecti on of vertebral arteryEncntr screen mammogram for malignant neoplasm of breastAbnormal weight gain 4 Pancho Pascal. [address], [place], [place], [address] , [place]. [phone] OFFICE/OUTPA TIENT VISIT, [facility], [address] [place], [address], [place] tel:[phone] [facility] anxiety1 (chief complaint)weigh t gani1 (chief complaint)insom nia1 (chief complaint)HTN (chief complaint) Essential (primary) hypertensionGe neralized Anxiety DisorderAbnorm al weight gainOther insomnia 4 Pancho Yang [address], [place], [place], [address] , [place]. tel:[phone] OFFICE/OUTPA TIENT VISIT, [facility], [address] [place], [address], [place] tel:[phone] [facility] UTI1 (chief complaint)clavi cle1 (chief complaint)yash vish (chief complaint)iron deficiency1 (chief complaint)HTN (chief complaint) Acute cystitis without hematuriaIron deficiency anemiaHashimot o's thyroiditisChr onic pain syndromeEssent ial (primary) hypertension 4 Pancho Yang [address], [place], [place], [address] , [place]. [phone] PREV VISIT, EST, AGE 40-64 [facility], [address] [place], [place], [address], [place] tel:[phone] [facility] physical (chief complaint) Encounter for general adult medical exam w abnormal findingsThyroi d noduleGenerali zed Anxiety DisorderIron deficiency anemia 3 Pancho Pascal. [address], [place], [place], [address] , [place]. tel:[phone] OFFICE/OUTPA TIENT VISIT, [facility], [address], [place], [place], [address], [place] tel:[phone] [facility] weight1 (chief complaint)nause a1 (chief complaint) Abnormal weight gainNausea w/o vomiting 3 Pancho Pascal. [address], [place], [place], [address] , [place]. tel:[phone] OFFICE/OUTPA TIENT VISIT, [facility], [address], [place], [place], [address], [place] tel:[phone] [facility] anxiety1 (chief complaint)iron1 (chief complaint)diver ticulitis1 (chief complaint)weigh t1 (chief complaint) Generalized Anxiety DisorderIron deficiency anemiaAbnormal weight gainDiverticul itis of intestine w/o abscess w/o bleedingFamily history of ischemic cardiac disease 3 Pancho Pascal. [address], [place], [place], [address] , [place]. [phone] OFFICE/OUTPA TIENT VISIT, [facility], [address], [place], [place], [address], [place] tel:[phone] [facility] abd pain (chief complaint) Diverticulitis of intestine w/o abscess w/o bleeding 3 Pancho Pascal. [address], [place], [place], [address] , [place]. tel:[phone] OFFICE/OUTPA TIENT VISIT, [facility], [address] [place], [address], [place] tel:[phone] [facility] nausea1 (chief complaint) Generalized abdominal painEssential (primary) hypertension 3 Pancho Yang [address], [place], [address] , [place]. tel:[phone] OFFICE/OUTPA TIENT VISIT, [facility], [address], [place], [place], [address], [place] tel:[phone] [facility] hashimoto1 (chief complaint)anemi a1 (chief complaint)anxie ty1 (chief complaint)weigh t1 (chief complaint) Generalized Anxiety DisorderAbnorm al weight gainHashimoto' s thyroiditisIro n deficiency anemiaFamily history of ischemic cardiac diseaseBariatr ic surgery status 3 Pancho Yang [address], [address], [place], [place], [address] , [place]. tel:[phone] OFFICE/OUTPA TIENT VISIT, EST [facility], [address], [place], [place], [address], [place] tel:[phone] [facility] hashimoto1 (chief complaint)anxie ty1 (chief complaint)weigh t1 (chief complaint) Leonel's thyroiditisGen eralized Anxiety DisorderAbnorm al weight gain 3 Pancho Yang [address], [place], [place], [address] , [place]. tel:[phone] PREV VISIT, EST, AGE 40-64 [facility], [address], [place], [place], [address], [place] tel:[phone] [facility] physical (chief complaint) Encounter for general adult medical examination without abnormal findings 3 Pancho Yang [address], [place], [address] , [place]. tel:[phone] OFFICE/OUTPA TIENT VISIT, [facility], [address], [place], [place], [address], [place] tel:[phone] [facility] ABDOMINAL PAIN1 (chief complaint) Renal stoneOther specified disorders of bladderGeneral ized abdominal pain 2 Deleon Gwyn. [address], [address], [place], [place], [address] , [place]. tel:[phone] OFFICE/OUTPA TIENT VISIT, [facility], [address], [place], [place], [address], [place] tel:[phone] [facility] abd pain1 (chief complaint) Benign essential microscopic hematuriaGener alized abdominal painFever 2 Deleon Gwyn. [address], [address], [place], [place], [address] , [place]. tel:[phone] OFFICE/OUTPA TIENT VISIT, [facility], [address], [place], [place], [address], [place] tel:[phone] [facility] UTI1 (chief complaint)anxie ty1 (chief complaint)pneum onia1 (chief complaint) Acute cystitis without hematuriaPneum oniaGeneralize d Anxiety DisorderFlushi ng 2 Deleon Gwyn. [address], [place], [address] , [place]. tel:[phone] OFFICE/OUTPA TIENT VISIT, [facility], [address], [place], [address], [place] tel:[phone] [facility] anxiety1 (chief complaint)pneum onia1 (chief complaint)SBO (chief complaint) Incomplete bowel obstructionAsp iration pneumoniaGener alized Anxiety Disorder 2 Deleon Gwyn. [address], [place], [address] , [place]. tel:[phone] OFFICE/OUTPA TIENT VISIT, [facility], [address], [place], [place], [address], [place] tel:[phone] [facility] SBO (chief complaint)pneum onia1 (chief complaint) Incomplete bowel obstructionPne umonia Jul- 2 Deleon Gwyn. [address], [address], [place], [place], [address] , [place]. tel:[phone] OFFICE/OUTPA TIENT VISIT, EST [facility], [address], [place], [place], [address], [place] tel:[phone] [facility] thyroid nodule1 (chief complaint)anxie ty1 (chief complaint)hot flash1 (chief complaint) Generalized Anxiety DisorderThyroi d noduleFlushing 2 Deleon Gwyn. [address], [place], [address] , [place]. tel:[phone] OFFICE/OUTPA TIENT VISIT, EST [facility], [address], [place], [address], [place] tel:[phone] [facility] anemia1 (chief complaint)D (chief complaint)rash1 (chief complaint)UTI1 (chief complaint) Vitamin D deficiency, unspecifiedDis order of iron metabolism, unspecifiedAne miaUrticariaUr inary tract infectionGener alized Anxiety DisorderEncoun ter for oth screening for malignant neoplasm of breast 2 Pancho Gwyn. [address], [place], [place], [address] , [place]. tel:[phone] OFFICE/OUTPA TIENT VISIT, EST [facility], [address], [place], [place], [address], [place] tel:[phone] [facility] UTI1 (chief complaint)anxie ty1 (chief complaint)insom nia1 (chief complaint) Urinary tract infectionGener alized Anxiety DisorderInsomn ia 2 Pancho Gwyn. [address], [place], [place], [address] , [place]. tel:[phone] PREV VISIT, EST, AGE 40-64 [facility], [address], [place], [place], [address], [place] tel:[phone] [facility] physical (chief complaint) Encounter for general adult medical examination without abnormal findings 2 Pancho Gwyn. [address], [place], [place], [address] , [place]. tel:[phone] OFFICE/OUTPA TIENT VISIT, [facility], [address], [place], [address], [place] tel:[phone] [facility] COVID19 (chief complaint) Viral infection 2 Pancho Pascal. [address], [place], [place], [address] , [place]. tel:[phone] OFFICE/OUTPA TIENT VISIT, [facility], [address], [place], [place], [address], [place] tel:[phone] [facility] UTI1 (chief complaint)mole1 (chief complaint)anxie ty1 (chief complaint) Nevus, non-neoplastic Generalized Anxiety DisorderUrinar y tract infection 1 Pancho Pascal. [address], [place], [address] , [place]. tel:[phone] OFFICE/OUTPA TIENT VISIT, [facility], [address], [place], [address], [place] tel:[phone] [facility] UTI1 (chief complaint)const ipation1 (chief complaint) Urinary tract infectionIrrit able bowel syndrome with constipation 1 Pancho Pascal. [address], [place], [address] , [place]. tel:[phone] OFFICE/OUTPA TIENT VISIT, [facility], [address], [place], [place], [address], [place] tel:[phone] [facility] sick (chief complaint)anxie ty1 (chief complaint)UTI1 (chief complaint) Viral infectionGener alized Anxiety DisorderDysuri a 1 Pancho Pascal. [address], [place], [place], [address] , [place]. tel:[phone] OFFICE/OUTPA TIENT VISIT, [facility], [address], [place], [place], [address], [place] tel:[phone] [facility] sick1 (chief complaint) Acute upper respiratory infection, unspecified 1 Pancho Yang [address], [place], [place], [address] , [place]. [phone] OFFICE/OUTPA TIENT VISIT, EST [facility], [address] [place], [address], [place] tel:[phone] [facility] insomnia1 (chief complaint)anxie ty1 (chief complaint)hypot hyroidism1 (chief complaint)hemat uria1 (chief complaint) Hypothyroidism Generalized Anxiety DisorderInsomn iaEncounter for oth screening for malignant neoplasm of breastHematuri a 1 Pancho Yang [address], [address], [place], [place], [address] , [place]. [phone] OFFICE/OUTPA TIENT VISIT, EST [facility], [address] [place], [address], [place] tel:[phone] [facility] anxiety1 (chief complaint) Generalized Anxiety Disorder 1 Pancho Yang [address] [place], [address] , [place]. tel:[phone] PREV VISIT, EST, AGE 40-64 [facility], [address] [place], [address], [place] tel:[phone] [facility] physical (chief complaint) Encounter for general adult medical examination without abnormal findings 0 Pancho Yang [address], [address], [place], [address] , [place]. [phone] OFFICE/OUTPA TIENT VISIT, [facility], [address] [place], [address], [place] tel:[phone] [facility] anxiety1 (chief complaint)hemat uria1 (chief complaint)hypot hyroidism1 (chief complaint)iBS1 (chief complaint)Well child HPI (chief complaint) Hypothyroidism HematuriaMixed irritable bowel syndromeGenera lized Anxiety Disorder Sep-3 0 Pancho Yang [address], [address], [place], [place], [address] , [place]. tel:[phone] OFFICE/OUTPA TIENT VISIT, EST [facility], [address], [place], [address], [place] tel:[phone] [facility] sick (chief complaint) Viral infection 0 Pancho Pascal. [address], [address], [place], [place], [address] , [place]. tel:[phone] OFFICE/OUTPA TIENT VISIT, [facility], [address], [place], [place], [address], [place] tel:[phone] [facility] fatigue1 (chief complaint)UTI1 (chief complaint)hypot hyroidism1 (chief complaint)anxie ty1 (chief complaint) FatigueHematur iaAbdominal painHypothyroi dismGeneralize d Anxiety Disorder 0 Pancho Yang [address], [place], [place], [address] , [place]. tel:[phone] OFFICE/OUTPA TIENT VISIT, [facility], [address], [place], [place], [address], [place] tel:[phone] [facility] UTI1 (chief complaint)thyro id nodue1 (chief complaint) Urinary tract infectionHemat uriaAbdominal painHypothyroi dism 0 Pancho Yang [address], [place], [place], [address] , [place]. [phone] Referring Provider: Gwyn Deleon [address], [place], [place], [address]. tel:[phone] PREV VISIT, EST, AGE 40-64 [facility], [address], [place], [place], [address], [place] tel:[phone] [facility] Physical (chief complaint) Encntr for general adult medical exam w/o abnormal findings 0 Pancho Pascal. [address], [address], [place], [place], [address] , [place]. tel:[phone] Referring Provider: Donaldo Omer [facility] A, [place], [place], [address]. tel:[phone] OFFICE/OUTPA TIENT VISIT, [facility], [address] [place] [address] [address] [place], [place], [address], [place] tel:[phone] [facility] fatigue1 (chief complaint)anemi a1 (chief complaint)renal (chief complaint)chest pain1 (chief complaint)thyro id1 (chief complaint) FatigueRenal diseaseAnemiaC hest painShortness of breathGenerali zed Anxiety Disorder Sep-2 9 Pancho Pascal. [address], [address], [place], [place], [address] , [place]. tel:[phone] Referring Provider: Donaldo Omer [facility], [place], [address]. tel:[phone] OFFICE/OUTPA TIENT VISIT, [facility], [address] [place], [address], [place] tel:[phone] [facility] back pain1 (chief complaint)anxie ty1 (chief complaint) AnemiaRenal diseaseMuscle spasm of backHypothyroi dismChest painGeneralize d Anxiety Disorder Sep-0 9 Pancho Pascal. [address], [facility] A, [place], [place], [address] , [place]. tel:[phone] Referring Provider: Donaldo Omer [facility] A, [place], [place], [address]. tel:[phone] OFFICE/OUTPA TIENT VISIT, [facility], [address] [place], [address], [place] tel:[phone] [facility] IBS (chief complaint)anxie ty1 (chief complaint)thyro id1 (chief complaint)mammo (chief complaint)weigh t loss1 (chief complaint) Generalized Anxiety DisorderEncoun ter for oth screening for malignant neoplasm of breastMixed irritable bowel syndromeHypoth yroidismUrinar y tract infectionBaria tric surgery status 9 Pancho Pascal. [address], [place], [address] , [place]. [phone] Referring Provider: Donaldo Omer [address], [place], [place], [address]. tel:[phone] OFFICE/OUTPA TIENT VISIT, EST [facility], [address], [place], [address], [place] [phone] [facility] sick1 (chief complaint)anxie ty1 (chief complaint)nause a1 (chief complaint)UTI1 (chief complaint) Generalized Anxiety DisorderAcute bronchitisUrin heron tract infectionMayo Clinic [facility] ([place])ia tric surgery status 9 Pancho Yang [address], [place], [place], [address] , [place]. tel:[phone] Referring Provider: Donaldo Omer [address], [place], [place], [address]. tel:[phone] PREV VISIT, EST, AGE 40-64 [facility], [address], [place], [place], [address], [place] tel:[phone] [facility] Physical (chief complaint) Encounter for general adult medical exam w abnormal findingsType 2 diabetes mellitus without complicationsE ssential (primary) hypertensionBa riatric surgery statusGenerali zed Anxiety DisorderNevus, non-neoplastic Hypothyroidism Mixed irritable bowel syndrome 8 Pancho Yang [address], [place], [place], [address] , [place]. [phone] Referring Provider: Donaldo Omer [address], [place], [place], [address]. tel:[phone] OFFICE/OUTPA TIENT VISIT, EST [facility], [address], [place], [place], [address], [place] tel:[phone] [facility] obesity1 (chief complaint) Body mass index (BMI) 39.0-39.9, adultAbnormal weight gain 8 Pancho Pascal. [address], [address], [place], [place], [address] , [place]. tel:[phone] Referring Provider: Donaldo Omer [address], [place], [place], [address]. tel:[phone] OFFICE/OUTPA TIENT VISIT, [facility], [address], [place], [address], [place] tel:[phone] [facility] HTN (chief complaint)DM (chief complaint)obesi ty1 (chief complaint)anxie ty1 (chief complaint) Body mass index (BMI) 39.0-39.9, adultEssential (primary) hypertensionTy pe 2 diabetes mellitus without complicationsG eneralized Anxiety Disorder 8 Pancho Pascal. [address], [place], [place], [address] , [place]. tel:[phone] Referring Provider: Donaldo Omer [address], [place], [place], [address]. tel:[phone] OFFICE/OUTPA TIENT VISIT, [facility], [address], [place], [address], [place] [phone] [facility] HTN (chief complaint)DM (chief complaint)obesi ty1 (chief complaint)anxie ty1 (chief complaint) Body mass index (BMI) 40.0-44.9, adultType 2 diabetes mellitus without complicationsE ssential (primary) hypertension 8 Pancho Pascal. [address], [place], [place], [address] , [place]. tel:[phone] Referring Provider: Donaldo Omer [address], [place], [place], [address]. tel:[phone] OFFICE/OUTPA TIENT VISIT, [facility], [address], [place], [place], [address], [place] tel:[phone] [facility] DM (chief complaint)iron1 (chief complaint)obesi ty1 (chief complaint)HTN (chief complaint) Type 2 diabetes mellitus without complicationsE ssential (primary) hypertensionAb normal weight gainDisorder of iron metabolism, unspecifiedHyp erlipidemia 8 Pancho Pascal. [address], [address], [place], [place], [address] , [place]. tel:[phone] Referring Provider: Donaldo Omer [address], [place], [place], [address]. tel:[phone] OFFICE/OUTPA TIENT VISIT, [facility], [address], [place], [address], [place] tel:[phone] [facility] HTN (chief complaint)obesi ty1 (chief complaint)head tremor1 (chief complaint) Body mass index (BMI) 40.0-44.9, adultEssential (primary) hypertensionTr emor 8 Pancho Yang [address], [address], [place], [address] , [place]. tel:[phone] Referring Provider: Donaldo Omer [address], [place], [place], [address]. tel:[phone] OFFICE/OUTPA TIENT VISIT, [facility], [address], [place], [place], [address], [place] tel:[phone] [facility] HTN (chief complaint)weigh t loss1 (chief complaint)GERD1 (chief complaint) GERD w/o esophagitisEss ential (primary) hypertensionBo dy mass index (BMI) 40.0-44.9, adult 8 Pancho Pascal. [address], [address], [place], [address] , [place]. tel:[phone] Referring Provider: Donaldo Omer [address], [place], [place], [address]. tel:[phone] OFFICE/OUTPA TIENT VISIT, [facility], [address], [place], [address], [place] tel:[phone] [facility] HTN (chief complaint)obesi ty1 (chief complaint)sleep apnea1 (chief complaint)GERD1 (chief complaint) Essential (primary) hypertensionBo dy mass index (BMI) 40.0-44.9, adultGERD w/o esophagitisFat igue 8 Pancho Yang [address], [place], [address] , [place]. tel:[phone] Referring Provider: Donaldo Omer [address], [place], [place], [address]. tel:[phone] OFFICE/OUTPA TIENT VISIT, [facility], [address], [place], [address], [place] [phone] [facility] thyroid (chief complaint)IBS1 (chief complaint)fatig ue1 (chief complaint)obesi ty1 (chief complaint) Mixed irritable bowel syndromeHypoth yroidismFatigu eBody mass index (BMI) 40.0-44.9, adult 7 Pancho Yang [address], [address], [place], [address] , [place]. tel:[phone] Referring Provider: Donaldo Omer [address], [place], [address]. tel:[phone] OFFICE/OUTPA TIENT VISIT, [facility], [address], [place], [address], [place] [phone] [facility] hypothyroidism1 (chief complaint)thyro id nodule1 (chief complaint)IBS (chief complaint)IBS1 (chief complaint) Thyroid noduleHypothyr oidismMixed irritable bowel syndromeBody mass index (BMI) 39.0-39.9, adult 7 Pancho Yang [address], [address], [place], [address] , [place]. tel:[phone] Referring Provider: Donaldo Omer [address], [place], [address]. [phone] OFFICE/OUTPA TIENT VISIT, [facility], [address], [place], [id number], tel:[phone] [facility] hypothyroidism (chief complaint)DM (chief complaint)IBS (chief complaint)IBS1 (chief complaint)HTN (chief complaint) Hypothyroidism Metabolic syndromeMixed irritable bowel syndromeEssent ial (primary) hypertension Pancho Pascal. [address] [facility], [place], [place], [id number] , [place]. tel:[phone] Referring Provider: Donaldo Omer [facility], [place], [place], [id number]. tel:[phone] PREV VISIT, NEW, AGE 40-64 [facility], [address] [place], [id number], [place] tel:[phone] [facility] PHysical (chief complaint) Encounter for general adult medical exam w abnormal findingsMixed irritable bowel syndromeHypoth yroidismMetabo lic disorder, unspecified Pancho Pascal. [address], [facility], [place], [place], [id number] , [place]. tel:[phone] Referring Provider: Donaldo Omer [facility], [place], [place], [id number]. tel:[phone] Family History Family Member Type Diagnosis Age At Onset Mother Problem (finding) Coronary artery disease 55 Sister Problem (finding) crohn disease Brother Problem (finding) Thyroid disorder Father Problem (finding) Diabetes mellitus type 2 Father Problem (finding) Coronary artery disease 57 Payers Payer name Insurance type Covered constitution party ID Authoriza tion(s) No Information Social History [...] doing ok. Pt had lab done by TIRE TRIMMER [facility] and her TSH ok insomnia1 (chief complaint). [...] limb) ordered Referral Referred To: Isabell Pendleton [address] [place] [address], [phone] Ordered: Referrals: Allopathic & Osteopathic Physicians : Plastic Surgery. Isabell Pendleton. Evaluate and treat ordered Referral Referred To: Wilian Clark [address], [phone] Ordered: Referrals: Wilian Clark. Evaluate and treat ordered Referral Ordered: Hematology (related to Iron deficiency anemia) ordered Referral Ordered: Referrals: Hematology. Evaluate and treat ordered Referral Referred To: Abhi Brown [address] [place], [phone] Ordered: Referrals: Abhi Brown. Evaluate and treat ordered Referral Ordered: Urology (related to Other specified disorders of bladder) ordered Referral Ordered: Referrals: Urology. Evaluate and treat ordered Referral Ordered: CT ABDOMEN&PELVIS W/CONTRAST ordered Referral Ordered: Harlan Dunaway -Allopathic & Osteopathic Physicians : Urology (related to Urinary tract infection) ordered Referral Referred To: Harlan Dunaway [address] [facility]
[address] [place], [place],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
--- OUTSIDE RECORDS SUMMARY | 2025-07-03 15:52 | XMS_ITS | Encounter Summary ---
Author Organization [facility] Healthcare Address [address] [place] [address] Care Team Providers Care Quarter Seamer Name Role Phone Gwyn Deleon MD Primary Care Provider Hiro Thurman ALARM FIELD TECHNICIAN Unavailable [phone] Meeta Barajas PT Unavailable Encounter Details Date Type Department Care Team (Late st Contact Info) Description 07/07/2018 Documentation [facility] Case Management [id number] [address] [address] Kiana Yun RN Social History Tobacco Use Types Packs/Day Years Used Date Smoking Tobacco: Never Smokeless Tobacco: Never Comments No Sex and Gender Information Value Date Recorded Sex Assigned at Not on file Legal Sex Female 2:17 AM MANAGER RESPIRATORY Gender Identity Not on file Sexual Orientation Not on file documented as of this encounter Plan of Treatment Not on file documented as of this encounter Visit Diagnoses Not on filedocumented in this encounter Additional Health Concerns Infection Onset Date Last Indicated Resolved Time COVID: Suspected 09/17/2021 09/17/2021 09/17/2021 6:08 PM MANAGER RESPIRATORY documented as of this encounter Care Teams Quarter Seamer Relationship Specialty Start Date End Date Gwyn Deleon MD PCP - General 12/16/17 Hiro Thurman, [facility] [phone] [place] [address] Nurse Practitioner Surgery 03/26/18 [place] [address] [place] [address] Physical Therapist Physical Therapy 04/16/18 documented as of this encounter
--- OUTSIDE RECORDS SUMMARY | 2025-07-03 15:52 | XMS_ITS | Clinical Summary ---
Author Organization [facility] [address] [place] Address [address] [place] [address] Care Team Providers Care Slice Plug Cutter Operator Helper Name Role Phone Gwyn Deleon MD Primary Care Provider Hiro Thurman FINANCIAL AID DIRECTOR Unavailable [phone] Meeta Barajas PT Unavailable Allergies No known active allergies Medications ALPRAZolam (XANAX) 0.5 mg tablet Take 0.5 mg by mouth as needed. 0 8 Active amitriptyline (ELAVIL) 50 mg tablet Take 50 mg by mouth nightly. Active levothyroxine (SYNTHROID, LEVOTHROID) 88 mcg tablet Take 88 mcg by mouth every morning. Active losartan (COZAAR) 50 mg tablet Take 50 mg by mouth every morning. 8 Active cholecalciferol (VITAMIN D3) 1,000 unit capsule Take 1,000 Units by mouth daily. Active ferrous sulfate 325 mg (65 mg of elemental iron) tablet Take 65 mg of elemental iron by mouth daily with breakfast. Active ondansetron (ZOFRAN) 4 mg tablet Take 1 tablet (4 mg total) by mouth every 6 (six) hours as needed for nausea or vomiting. 30 tablet 8 Active cyanocobalamin (Vitamin B-12) 500 mcg tabletIndicatio ns:Prevention of Vitamin B12 Deficiency Take 1 tablet (500 mcg total) by mouth daily. 30 tablet 8 Active famotidine (PEPCID) 20 mg tabletIndicatio ns:non-bleeding gastric disorder Take 1 tablet (20 mg total) by mouth 2 (two) times a day. 60 tablet 1 8 Active CALCIUM CITRATE-VITAMIN D3 ORAL Take by mouth. Pt uses 500 mg/ml liquid calcium citrate with vitamin D twice daily and one tablespoon Active predniSONE (DELTASONE) 10 mg tabletIndicatio ns:Urticaria Take 4 tablets po once daily x 2 days, then take 3 tablets po x 2 days, then take 2 tablets po x 2 days, then take 1 tablet po x 2 days, then stop 20 tablet 2 Active Active Problems Problem Noted Date Diagnosed Date Morbid obesity due to excess calories 06/23/2018 Overview (06/23/2018): Added automatically from request for surgery [id number] Morbid obesity 06/10/2018 GERD (gastroesophageal reflux disease) 8 Hypothyroid 06/10/2018 Prediabetes 06/10/2018 IBS (irritable bowel syndrome) 06/10/2018 Surgical History Surgery Date Site/Laterality Comments PARTIAL HYSTERECTOMY CYSTOCELE REPAIR CYSTOSCOPY 12/30/2004 TONSILLECTOMY 2007 COLONOSCOPY Medical History Medical History Date Comments GERD (gastroesophageal reflux disease) Thyroid disease hypothyroidism IBS (irritable bowel syndrome) Morbid obesity (HCC) Hypertension Diabetes (HCC) DM2 Family History Medical History Relation Name Comments Obesity Brother Morbid obesity - (Added by TW Conv) Diabetes Father Family history of diabetes mellitus - (Added by TW Conv) Heart disease Father Family history of cardiac disorder - (Added by TW Conv) Obesity Father Morbid obesity - (Added by TW Conv) Heart attack Mother Family history of myocardial infarction - (Added by TW Conv) Hypertension Mother Family history of hypertension - (Added by TW Conv) Obesity Mother Overweight - (A dded by TW Conv) Obesity Sister Overweight - (A dded by TW Conv) Anesthesia problems Neg Hx Relation Name Status Comments Brother Father Mother Sister Social History Tobacco Use Types Packs/Day Years Used Date Smoking Tobacco: Never Smokeless Tobacco: Never Comments No Sex and Gender Information Value Date Recorded Sex Assigned at Not on file Legal Sex Female 2:17 AM BODY SHOP WORKER Gender Identity Not on file Sexual Orientation Not on file Obstetrics History Last Filed Vital Signs Vital Sign Reading Time Taken Comments Blood Pressure 128/90 09/17/2021 6:07 PM BODY SHOP WORKER Pulse 100 03/06/2022 8:50 AM CDT Temperature 36.2 C (97.1 F) 03/06/2022 8:50 AM CDT Respiratory Rate 16 05/31/2021 9:00 PM CDT Oxygen Saturation 97% 03/06/2022 8:50 AM CDT Inhaled Oxygen Concentration - - Weight 91.6 kg (202 lb) 09/17/2021 5:45 PM BODY SHOP WORKER Height 167.6 cm (5' 6) 09/17/2021 5:45 PM BODY SHOP WORKER Body Mass Index 32.6 09/17/2021 5:45 PM BODY SHOP WORKER Plan of Treatment Not on file Advance Directives For more information, please contact: [phone] * Full Code (Latest Code Status on File) Date Activated Date Inactivated Comments 07/05/2018 6:06 PM 07/07/2018 4:03 PM Care Teams Slice Plug Cutter Operator Helper Relationship Specialty Start Date End Date Gwyn Deleon MD PCP - General 12/16/17 Hiro Thurman NP [phone] [place] [address] Nurse Practitioner Surgery 03/26/18 [place] [address] [place] [address] Physical Therapist Physical Therapy 04/16/18
--- OUTSIDE RECORDS SUMMARY | 2025-07-03 15:53 | XMS_ITS | Clinical Summary ---
Author Organization [facility] Brandan sujata Vazquezdaja Address [address] [place] [address] Care Team Providers Care Paradi Tender Name Role Phone Gwyn Deleon MD Primary Care Provider [phone] Allergies No known active allergies Medications Synthroid 112 mcg tablet Take 112 mcg by mouth daily. Active amitriptyline (ELAVIL) 75 mg tablet Take 75 mg by mouth daily at bedtime. Active omeprazole (PriLOSEC) 40 mg Capsule, Delayed Release(E.C.) 40 mg. 04/30/2023 Activ e ALPRAZolam (XANAX) 0.5 mg tablet 0.5 mg. Active omega-3 acid ethyl esters (LOVAZA) 1 gram Capsule Take 4 Grams by mouth daily. Active ondansetron (ZOFRAN) 4 mg Tablet Take 4 mg by mouth every 8 hours as needed for Nausea/Emes is. Active calcium-vitamin D3-vitamin K (VIACTIV) 500-100-40 mg-unit-mcg Tablet, Chewable Take 1 Tablet by mouth. Active Active Problems No known active problems Family History Relation Name Status Comments Brother Alive Daughter Alive Father Alive Mother Alive Sister Alive Son Alive Social History Tobacco Use Types Packs/Day Years Used Date Smoking Tobacco: Never Smokeless Tobacco: Never Alcohol Use Standard Drinks/Week Comments Yes 0 (1 standard drink = 0.6 oz pur e alcohol) rare Comments Unknown Sex and Gender Information Value Date Recorded Sex Assigned at Not on file Legal Sex Female 10:45 AM CDT Gender Identity Not on file Sexual Orientation Not on file Last Filed Vital Signs Vital Sign Reading Time Taken Comments Blood Pressure 127/89 05/13/2023 3:14 PM CDT Pulse 78 05/13/2023 3:14 PM CDT Temperature 36.5 C (97.7 F) 05/13/2023 3:14 PM CDT Respiratory Rate 10 05/13/2023 3:14 PM CDT Oxygen Saturation 98% 05/13/2023 3:14 PM CDT Inhaled Oxygen Concentration - - Weight 83.9 kg (185 lb) 05/13/2023 3:14 PM CDT Height 165.1 cm (5' 5) 05/13/2023 3:14 PM CDT Body Mass Index 30.79 05/13/2023 3:14 PM CDT Plan of Treatment Health Maintenance Due Date Last Done Comments DTAP/TDAP/TD VACCINES (1 - Tdap) 1996 HEPATITIS B VACCINES (1 of 3 - 19+ 3-dose series) 06/1996 BREAST CANCER SCREENING 2017 06/19/2015 COLORECTAL SCREENING 2022 Colorectal Cancer Screening 2022 FIT-DNA Q 3 years 2022 FIT/FOBT Q 1 year 2022 Flex Sig/CT Colonography Q 5 years 2022 INFLUENZA VACCINE (#1) 2025 09/14/2018 Insurance [facility] MEDICAID Care Teams Paradi Tender Relationship Specialty Start Date End Date Gwyn Deleon MD [facility] [place] [address] PCP - General Family Practice 05/13/23
--- OUTSIDE RECORDS SUMMARY | 2025-07-03 15:53 | XMS_ITS | Encounter Summary ---
Author Organization [facility] Address [address] [address] Care Team Providers Care Coo Name Role Phone Gwyn Deleon MD Primary Care Provider [phone] Encounter Details Date Type Department Care Team (Late st Contact Info) Description 06/20/2025 Results Follow-Up [facility] [address] [place] [address] Betty Guido MD [address] [facility] [address] [place] [address] Social History Tobacco Use Types Packs/Day Years Used Date Smoking Tobacco: Never Smokeless Tobacco: Never Alcohol Use Standard Drinks/Week Comments Not Currently 2 (1 standard drink = 0.6 oz pur e alcohol) AUDIT-C Answer Date Recorded Q1: How often do you have a drink containing alcohol? Never 06/19/2025 Q2: How many drinks containi ng alcohol do you have on a typical day when you are drinking? Patient does not drink Q3: How often do you have si x or more drinks on one occasion? Never 06/19/2025 Overall Financial Resource Strain (CARDIA) Answe r Date Recorded How hard is it for you to pa y for the very basics like food, housing, medical care, and heating? Not hard at all 10/16/2023 PHQ-2 Answer Date Recorded Patient Health Questionnaire-2 Score 0 03/28/2025 [facility] [place] [facility] Occupat ional [facility] - Occupational Stress Questionnaire Answer Date Recorded Do you feel stress - tense, restless, nervous, or anxious, or unable to sleep at night because your mind is troubled all the time - these days? Not at all 10/16/2023 Hunger Vital Sign Answer Date Recorded Within the past 12 months, y ou worried that your food would run out before you got the money to buy more. Never true 10/16/20 23 Within the past 12 months, t he food you bought just didn't last and you didn't have money to get more. Never true 10/16/2023 PRAPARE - Transportation Answer Date Re corded In the past 12 months, has l ack of transportation kept you from medical appointments or from getting medications? No 07/2023 In the past 12 months, has l ack of transportation kept you from meetings, work, or from getting things needed for daily living? No 10/16/2023 Housing Stability Vital Sign Answer Db e Recorded In the last 12 months, was t here a time when you were not able to pay the mortgage or rent on time? No 10/16/2023 In the last 12 months, how many places have you lived? 1 10/16/2023 In the last 12 months, was t here a time when you did not have a steady place to sleep or slept in a assisted (including now)? No 10/16/2023 Comments No Sex and Gender Information Value Date Recorded Sex Assigned at Not on file Legal Sex Female 6:09 PM ELECTROLYSIS ENGINEER Gender Identity Not on file Sexual Orientation Not on file documented as of this encounter Functional Status * Is person deaf or have serious hearing difficulty? Answer Date of Assessment Author No 11/04/2023 4:18 PM Emerosn Barrow RN * Is person blind or have serious difficulty seeing? Answer Date of Assessment Author No 11/04/2023 4:18 PM Emerson Barrow RN * Does person have serious difficulty walking/climbing stairs? Answer Date of Assessment Author No 11/04/2023 4:18 PM Emerson Barrow RN * Does person have difficulty dressing/bathing? Answer Date of Assessment Author No 11/04/2023 4:18 PM Emerson Barrow RN * Does person have difficulty doing errands alone? Answer Date of Assessment Author No 11/04/2023 4:18 PM Emerson Barrow RN documented as of this encounter Mental Status * Does person have difficulty concentrating/remembering/making decisions? Answer Entry Date Author No 11/04/2023 4:18 PM Emerson Barrow RN documented in this encounter Plan of Treatment Upcoming Encounters Date Type Department Care Team (Late st Contact Info) Description 07/30/2025 10:45 AM CDT Office Visit [facility] - SOFTWARE SYSTEMS ANALYST [address] [place] [address] Betty Guido MD [address] [place] [address] documented as of this encounter Visit Diagnoses Not on filedocumented in this encounter Care Teams Coo Relationship Specialty Start Date End Date Gwyn Deleon MD PCP - General 08/31/19 documented as of this encounter
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
[2025-07-03 16:00] VITALS: BP 116/97; PULSE 97; RESP 18; TEMP 36.5; O2SAT 97
[2025-07-03 16:22] LABS: EDUAAPPEAR Clear; EDUABILI Negative (Negative); EDUABLOOD Trace (Negative); EDUACOLOR1 Yellow; EDUAGLUCOSE Negative (Negative); EDUAKETONE Negative (Negative); EDUALEUKO Negative (Negative); EDUANITRATE Negative (Negative); EDUAPH 5.5; EDUAPROTEIN Negative (Negative); EDUASPGRAVITY 1.020; EDUAUROBILI 0.2
--- NOTE | 2025-07-03 16:33 | ED_ITS ---
HPI - General Adult General Chief complaint: Urogenital-Female Stated complaint: Body ache History of Present Illness HPI narrative: Oksana Kennedy is a 50 year female who presents today after starting to have body aches and spiked a fever today. She denies having any other symptoms. No cough no shortness of breath no sore throat no chest pain. She explains that she is 2 weeks postop of getting mesh revision and her vagina from a previous surgery and with this onset of feeling ill with body aches and fever she called her doctor where she had the surgery done and they thought it sounded like the flu and they had her do COVID come here for a flu test and check her urinalysis. She states that she has been taking Motrin for her fevers and she still just feels achy. She explains that she does have vaginal pain but can not really tell if it is any worse or if it should be still this painful. She has some lower pelvic pain also that is been there since the surgery and she has a hard time differentiating if this is any worse. Related Data Home Medications ?Medication ?Instructions ?Recorded ?Confirmed ?Last Taken ?Type alprazolam 0.5 mg tablet 0.5 mg PO TID PRN Anxiety 01/12/24 Unknown Hi story amitriptyline 75 mg tablet 75 mg PO HS 11/23/19 Unknown History levothyroxine 112 mcg tablet 112 mcg PO DAILY 03/04/23 01/12/24 03/12/23 History (Synthroid) multivitamin 1 tablet PO DAILY 03/04/23 0 01/12/24 Unknown History aspirin 81 mg tablet,delayed 81 mg PO DAILY 01/11/24 0 01/12/24 Unknown History release amitriptyline 50 mg tablet mg 07/03/25 Unknown Histor y trimethoprim 100 mg tablet mg 07/03/25 Unknown Histor y Allergies Allergy/AdvReac Type Severity Reaction Status Date / Time nitrofurantoin (From Allergy Intermediate Hives Verified 07/03/25 16:18 Macrobid) Review of Systems Review of Systems: All systems reviewed & are unremarkable except as noted in HPI and below PMFSH Past Medical History Medical History Obesity Anxiety Hypothyroid Diabetes IBS (irritable bowel syndrome) Hiatal hernia Asthma HTN (hypertension) Surgical History Surgical History History of bladder surgery History of tonsillectomy History of hysterectomy Social History Social History Smoking status: Never smoker Alcohol intake: current Alcohol use details: 2/MONTH Substance use: never Substance use type: does not use Living arrangements: with family Gender identity (if verbalized by the patient): Female Spiritual care concerns: No Exam Narrative: GENERAL: Well-appearing, well-nourished, and in no acute distress. HEAD: Normocephalic, atraumatic. EYES: PERRLA and EOMI. ENT: Nares clear, no rhinorrhea or epistaxis. Mucous membranes moist. NECK: Supple. No adenopathy or masses. No carotid bruits or JVD CHEST: Clear to auscultation. No respiratory distress. No wheezes rales or rhonchi HEART: Regular rate and rhythm. No murmur heard. Normal peripheral pulses. EXTREMITIES: Normal range of motion. No edema. SKIN: Warm, dry, no rash. NEURO: No focal deficits. Alert and oriented x3. PSYCH: Normal mood and affect. Course Course Level of Care: Express Care Visit Vital Signs Vital signs: Vital Signs Temperature 36.5 C 07/03/25 16:00 Pulse Rate 97 07/03/25 16:00 Respiratory Rate 18 07/03/25 16:00 Blood Pressure 116/97 H 07/03/25 16:00 Pulse Oximetry 97 07/03/25 16:00 Oxygen Delivery Room Air 07/03/25 16:00 Temperature 36.5 C 07/03/25 16:00 Pulse Rate 97 07/03/25 16:00 Respiratory Rate 18 07/03/25 16:00 Blood Pressure 116/97 H 07/03/25 16:00 Pulse Oximetry 97 07/03/25 16:00 Oxygen Delivery Room Air 07/03/25 16:00 Medical Decision Making [facility] Narrative Medical decision making narrative: 50-year-old female who presents 2 weeks postop with complaints of body aches and fever that started today. She wanted to be checked for flu and get her urine checked for UTI. She states last time she felt like that she did have urinary tract infection and did not have any other symptoms other than body aches. On exam lungs are clear respirations even nonlabored she has some mild pelvic pain that she says been there since the surgery. She has been taking ibuprofen today for her fevers flu here is negative she took a COVID at home that was negative and urine dip here is negative for any evidence of a urinary tract infection. There is microscopic blood noted which considering her vaginal surgery could be related to that. I explained to patient that possibly could be too early for flu a COVID to show up on a test she may continue to push hydration and take the Tylenol Motrin at home however she develops any worsening symptoms or does not feel like she is getting any better she may need to proceed to the emergency department for more of a workup /evaluation. Patient states she prefers to go home and see if she improves, she does not want to go to the ER at this time, using shared decion making with strict return precautions pt is d/c home. Medical Records Medical records reviewed: Yes I reviewed the external patient's medical records. Vital Signs Vital Signs: Vital Signs Temperature 36.5 C 07/03/25 16:00 Pulse Rate 97 07/03/25 16:00 Respiratory Rate 18 07/03/25 16:00 Blood Pressure 116/97 H 07/03/25 16:00 Pulse Oximetry 97 07/03/25 16:00 Oxygen Delivery Room Air 07/03/25 16:00 Temperature 36.5 C 07/03/25 16:00 Pulse Rate 97 07/03/25 16:00 Respiratory Rate 18 07/03/25 16:00 Blood Pressure 116/97 H 07/03/25 16:00 Pulse Oximetry 97 07/03/25 16:00 Oxygen Delivery Room Air 07/03/25 16:00 Vitals reviewed by me Lab Data Lab results reviewed: Yes I reviewed the patient's lab results. Labs: Lab Results 07/03/25 Range/Units 16:19 POC Urine Color Yellow POC Urine Clarity Clear POC Urine pH 5.5 POC Ur Specif [place] 1.020 POC Urine Protein Negative (Negative) POC Ur Glucose (UA) Negative (Negative) POC Urine Ketones Negative (Negative) POC Urine Blood Trace (Negative) POC Urine Nitrite Negative (Negative) POC Urine Bilirubin Negative (Negative) POC Urine Urobilinogen 0.2 POC U Leukocyte Esteras Negative (Negative) Discharge Plan Discharge Clinical Impression: Body aches Patient Disposition: Home Condition: Stable Instructions: Antibiotic Form Additional Instructions: Push hydration drinking plenty of fluids continue to take Tylenol Motrin for your body aches. If you develop any new or worsening symptoms please proceed to the emergency department. Patient Language: Korean Prescriptions: No Action trimethoprim 100 mg tablet amitriptyline 50 mg tablet amitriptyline 75 mg Tablet 75 mg PO HS alprazolam 0.5 mg Tablet 0.5 mg PO TID PRN (Reason: Anxiety) epinephrine 0.3 mg/0.3 mL auto-injector 0.3 ml subcut ONCE Qty: 2 0RF Rx Instructions: as a single dose; may repeat once aspirin 81 mg tablet,delayed release (DR/EC) 81 mg PO DAILY multivitamin Tablet 1 tablet PO DAILY levothyroxine [Synthroid] 112 mcg Tablet 112 mcg PO DAILY Follow-up/Referrals: Gwyn Deleon MD [Primary Care Provider, [facility]] - 3 Days Time of Disposition: 16:43
[2025-07-03 16:34] LABS: EDINFLUASCREEN Negative (Negative); EDINFLUBSCREEN Negative (Negative)
== END 2025-07-03 16:50 | disposition home or self-care (01) ==
PROVIDERS: Emergency Provider Nurse Practitioner Family; PCP Emergency Medicine
DX: R52 Pain, unspecified (principal); E03.9 Hypothyroidism, unspecified; E11.9 Type 2 diabetes mellitus without complications; I10 Essential (primary) hypertension; J45.909 Unspecified asthma, uncomplicated; F41.9 Anxiety disorder, unspecified; E66.9 Obesity, unspecified; Z68.32 Body mass index [BMI] 32.0-32.9, adult
CPT/HCPCS: 81003; 87804; 99212; G0463

== ENCOUNTER 2025-08-24 08:37 | Outpatient (CLI) | payer OTHER, SELFPAY ==
--- NOTE | ~2025-08-24 | MMUS_ITS ---
EXAMINATION: US breast RT limited, MM diagnostic daniel RT w kosta HISTORY: 6 month follow-up TECHNIQUE: Additional images of the right breast]] were performed using full field digital mammography. 3-D tomosynthesis were also obtained and synthetic 2- D images were generated. CAD analysis was submitted and interpreted. High- resolution right breast ultrasound was performed.] ] COMPARISON: Mammograms from 02/22/2025 and 08/02/2017 BREAST PARENCHYMAL COMPOSITION: The right breast is heterogeneously dense, which may obscure small masses. FINDINGS: MAMMOGRAPHIC FINDINGS: Asymmetry in the outer right breast, middle depth, seen in the right cc projection.The finding may correspond with a 1.0 cm hypoechoic cyst versus solid mass in the right breast at 8:00 position 5 cm from the nipple identified sonographically. ULTRASOUND: There is a 9 x 10 x 4 mm well-circumscribed wider than tall hypoechoic cyst versus solid mass in the right breast at the 8:00 position 5 cm from the nipple. No internal color flow. No posterior acoustic shadowing. There is a 5 x 6 x 3 mm hypoechoic mass in the right breast benign o'clock position 6 cm from the nipple. No internal color Doppler flow. No posterior acoustic shadowing. The finding is probably benign. IMPRESSION/RECOMMENDATION: 1. Probably benign findings in the right breast. A diagnostic right breast mammogram and diagnostic right breast ultrasound in 6 months is recommended. BI-RADS 3-Probably benign-Short interval follow-up suggested. Reviewed, dictated and finalized at location Q. IMPRESSION/RECOMMENDATION: 1. Probably benign findings in the right breast. A diagnostic right breast mamm ogram and diagnostic right breast ultrasound in 6 months is recommended. BI-RADS 3-Probably benign-Short interval follow-up suggested. IMPRESSION/RECOMMENDATION: 1. Probably benign findings in the right breast. A diagnostic right breast mamm ogram and diagnostic right breast ultrasound in 6 months is recommended. BI-RADS 3-Probably benign-Short interval follow-up suggested.
== END 2025-08-24 08:38 | disposition home or self-care (01) ==
LOC: MICIMG 08:38
PROVIDERS: PCP Emergency Medicine; Visit Provider Obstetrics & Gynecology
DX: R92.8 Other abnormal and inconclusive findings on diagnostic imaging of breast (principal)
CPT/HCPCS: 76642; 77061; 77065; G0279